=== PATIENT | male | born 1955 | race Caucasian/White ===

== ENCOUNTER 2019-07-28 02:10 | Inpatient (IN) ==
[2019-07-28] MEDS ORDERED: ALBUTEROL NEB INH ONE (02:28)
[2019-07-28] MEDS ORDERED: SOLU-MEDROL IV ONE (02:28)
[2019-07-28] MEDS ORDERED: DUONEB (A & A) INH ONE (02:28)
[2019-07-28] MEDS ORDERED: PULMICORT INH ONE (02:28)
--- NOTE | 2019-07-28 02:38 | PROVIDER DOCUMENTATION ---
HPI-Respiratory General - General Chief Complaint: Shortness of Breath Stated Complaint: SOB Time Seen by Provider: 07/28/19 02:22 Source: patient, family Allergies/Adverse Reactions: Patient Allergies Allergy/AdvReac Type Severity Reaction Status Date / Time codeine AdvReac Unknown RASH Verified 07/28/19 02:31 Home Medications: Home Medication List Medication Instructions Recorded Confirmed Last Taken Type Ondansetron Odt [Zofran Odt] 4 mg SL Q8H PRN PRN #20 tablet 10/16/13 07/28/19 Unknown Rx Alprazolam [Xanax] 0.25 mg PO TID 06/02/19 07/28/19 07/27/19 17:00 History Amlodipine [Norvasc] 10 mg PO DAILY 06/02/19 07/28/19 07/27/19 09:00 History Aspirin 81 mg PO DAILY 06/02/19 07/28/19 07/27/19 09:00 History Eszopiclone [Lunesta] 2 mg PO QHS 06/02/19 07/28/19 07/27/19 21:00 History Methylphenidate HCl [Ritalin] 10 mg PO QAM 06/02/19 07/28/19 07/27/19 09:00 History Cannabidiol (Cbd) Extract 10 mg SUBLINGUAL DAILY 07/28/19 07/28/19 07/27/19 17:00 History [Epidiolex] Clopidogrel Bisulfate [Clopidogrel] 75 mg PO DAILY 07/28/19 07/28/19 07/27/19 09:00 History Dexamethasone 4 mg PO DIRECTED 07/28/19 07/28/19 07/27/19 15:00 History Dronabinol 5 mg PO BID 07/28/19 07/28/19 07/27/19 15:00 History Fentanyl 1 patch TOP Q3D 07/28/19 07/28/19 07/25/19 History Methylphenidate HCl 5 mg PO DIRECTED 07/28/19 07/28/19 07/27/19 15:00 History Oxycodone HCl/Acetaminophen 1 ea PO Q4-6H PRN PRN 07/28/19 07/28/19 Unknown History [Oxycodone-Acetaminophen 10-325] - History of Present Illness-Resp Nature of Presenting Problem: has had cough and congestion for 2-3 days, no fever. Last pm, ~2300, became SOB. Has a central nonradiating CP, nothing makes it better nor worse, but SOB worse with activity. Sl nausea, no vomiting, has had diarrhea, Nothing with extremities. Has hx small cell lung CA, getting chemo, also hx COPD Quality of Pain: reports: dull Review of Systems - Adult - REVIEW OF SYSTEMS - ADULT Constitutional: reports: no symptoms reported Eyes: reports: no symptoms reported Ears, Nose, Mouth & Throat: reports: no symptoms reported Cardiovascular: reports: no symptoms reported Respiratory: reports: see HPI Past History - Adult - PAST MEDICAL HISTORY-ADULT Review of Records: reports: Medications Reviewed Major Childhood Illnesses: reports: denies history Cardiovascular: reports: HTN Respiratory: reports: COPD, cancer Gastrointestinal: reports: denies history Musculoskeletal: reports: denies history Neurological: reports: CVA Psychiatric: reports: denies history Endocrine/Immune: reports: denies history Physical Exam-General - PHYSICAL EXAM-ADULT Initial Vital Signs Reviewed: Yes - CONSTITUTIONAL General Appearance: alert, mild distress - EYES Eyes: PERRL/EOMI, pink conjunctivae - HEAD, EARS, NOSE, MOUTH & THROAT HENMT: normocephalic/atraumatic, moist mucous membranes, normal ENT inspection, pharynx normal - NECK Neck: non-tender, full range of motion, supple - RESPIRATORY Respiratory: respiratory distress (mild-mod), decreased breath sounds ( lloyd on L), accessory muscle use - CARDIOVASCULAR Cardiovascular: tachycardia - GASTROINTESTINAL (ABDOMEN) Abdominal Exam: non tender, soft - MUSCULOSKELETAL Back Exam: normal inspection, no CVA tenderness, no vertebral tenderness Extremity: normal range of motion, non-tender, normal inspection - SKIN Integumentary: normal color, normal turgor, warm/dry - NEUROLOGIC 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: 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 as tested, grossly normal, no motor/sensory deficits - PSYCHIATRIC Psych/Mental Status: normal mood/affect, normal thought content, normal thought process, oriented x 3 - HEART Score HEART Score: History: Slightly Suspicious HEART Score: ECG: Non-Specific Repolarization Disturbance/LBBB/PM HEART Score: Age: 45-65 Years HEART Score: Risk Factors for Atherosclerotic Disease: 1 or 2 Risk Factors Progress - PLAN OF CARE/RESULTS Progress/Plan/Lab Results: Vital Signs - 8 hr 07/28/19 02:12 07/28/19 02:55 Temperature 97.2 F L Pulse Rate 123 H 108 H Respiratory Rate 29 H 26 H Blood Pressure 184/72 O2 Sat by Pulse Oximetry 81 L 97 Laboratory Results - last 24 hr 07/28/19 07/28/19 07/28/19 02:40 02:40 02:40 WBC 27.87 H RBC 3.18 L Hgb 10.3 L Hct 31.8 L MCV 100.0 H MCH 32.4 H MCHC 32.4 L RDW Std Deviation 21.2 H Plt Count 122 L MPV 10.0 Neut % (Auto) Not Reportable Lymph % (Auto) Not Reportable [place] % (Auto) 2.9 Eos % (Auto) 0.0 Baso % (Auto) 0.4 Neut # (Auto) Not Reportable Lymph # (Auto) Not Reportable [place] # (Auto) 0.81 H Eos # (Auto) 0.01 Baso # (Auto) 0.11 D-Dimer, Quantitative Specimen Type ARTERIAL Sample Site R RADIAL pH 7.46 H pCO2 43 pO2 74 HCO3 29.6 H Base Excess 6.1 H Oxyhemoglobin 93.9 L ABG O2 Sat (Calculated) 13.9 L ABG O2 Saturation 97.0 ABG Carboxyhemoglobin 1.90 ABG Methemoglobin 1.3 Kayden Test YES A-a O2 Difference 129.0 Total Hemoglobin 10.5 L Lactate 1.60 Liter Flow 4.0 Blood Gas Modality CANNULA FiO2 % 36.0 Sodium Potassium Chloride Carbon Dioxide Anion Gap BUN Creatinine Estimated GFR/1.73 m2 BUN/Creatinine Ratio Glucose Calculated Osmolality Calcium Total Bilirubin AST ALT Alkaline Phosphatase Troponin T < 0.010 Total Protein Albumin Globulin Albumin/Globulin Ratio Plasma Lactate 07/28/19 07/28/19 07/28/19 02:40 02:40 02:40 WBC RBC Hgb Hct MCV MCH MCHC RDW Std Deviation Plt Count MPV Neut % (Auto) Lymph % (Auto) [place] % (Auto) Eos % (Auto) Baso % (Auto) Neut # (Auto) Lymph # (Auto) [place] # (Auto) Eos # (Auto) Baso # (Auto) D-Dimer, Quantitative 0.79 H Specimen Type Sample Site pH pCO2 pO2 HCO3 Base Excess Oxyhemoglobin ABG O2 Sat (Calculated) ABG O2 Saturation ABG Carboxyhemoglobin ABG Methemoglobin Kayden Test A-a O2 Difference Total Hemoglobin Lactate Liter Flow Blood Gas Modality FiO2 % Sodium 136 Potassium 3.7 Chloride 93 L Carbon Dioxide 30 Anion Gap 13 BUN 16 Creatinine 0.6 L Estimated GFR/1.73 m2 > 60 BUN/Creatinine Ratio 27 Glucose 110 H Calculated Osmolality 274 Calcium 8.7 L Total Bilirubin 0.38 AST 18 ALT 35 Alkaline Phosphatase 151 H Troponin T Total Protein 6.5 Albumin 4.0 Globulin 2.5 Albumin/Globulin Ratio 1.6 Plasma Lactate 1.8 Orders Category Date Time Status Nursing- Obtain EKG ONCE Care 07/28/19 02:36 Active CHEST-PORTABLE [RAD] Stat Exams 07/28/19 02:[address] ANGIOGRM PULMONARY ARTERIES [CT] Stat Exams 07/28/19 03:32 Taken ABG [RESP] Routine Lab 07/28/19 02:40 Completed BLOOD CULTURE [BLDCUL] Stat Lab 07/28/19 04:51 Uncollected CBC WITH DIFF [HEME] Stat Lab 07/28/19 02:40 Completed COMPREHENSIVE METABOLIC PANEL [CHEM] Stat Lab 07/28/19 02:40 Completed D-DIMER [COAG] Stat Lab 07/28/19 02:40 Completed LACTATE, PLASMA [CHEM] Stat Lab 07/28/19 02:40 Completed TROPONIN T Stat Lab 07/28/19 02:40 Completed Albuterol 2.5MG/Ipratrop 0.5MG [Duoneb (A & A)] Med 07/28/19 02:28 Discont inued 3 ml INH NOW ONE Albuterol [Albuterol Neb] Med 07/28/19 02:28 Discontinued 5 mg INH NOW ONE Budesonide [Pulmicort] Med 07/28/19 02:28 Discontinued 0.5 mg INH NOW ONE Maxipime 2 gm/Ns IV Now Med 07/28/19 04:51 Ordered CefEPIME [Maxipime] 2 gm 0.9% Sodium Chloride Inj [Ns] 100 ml IV NOW Methylprednisolone Sod Succ [Solu-Medrol] Med 07/28/19 02:28 Discontinued 125 mg IV NOW ONE Pharmacy Order [Vancomycin IV Per Pharmacy] Med 07/28/19 05:00 Ordered 1 each MISC DIRECTED Aerosol Treatments Routine Oth 07/28/19 02:29 Completed Aerosol Treatments Stat Oth 07/28/19 02:29 Completed Pulse Oximetry Stat Oth 07/28/19 04:51 Ordered EKG [EKG] Stat Ther 07/28/19 02:36 Draft Result Diagrams: 07/28/19 02:40 07/28/19 02:40 - EKG 1 Time of EKG reading by physician:: 02:20 EKG Read and Signed by:: Case Bermudez EKG Interpretation (*Must complete 3 of following elements*): Abnormal Rate: 111 Rhythm: sinus tach [place]: normal ST Wave: non-specific ST changes - XRAY 1 XRAY Study: Chest Impression: Abnormal (mass L upper lobe) - CT/MRI 1 CT Study: Angiogram Impression: Abnormal (no PE, has JENNIFER mass with chest wal invasion, bilat pneumonia) Departure - Departure Date of Disposition Decision: 07/28/19 Time of Disposition Decision: 02:49 DIAGNOSIS: COPD with exacerbation, Small cell lung cancer in adult, Hypoxemia, Healthcare associated bacterial pneumonia Disposition: ADMITTED INPATIENT 09 Certified Medical Emergency: Emergent Condition: Stable Referrals and Follow-Ups: Stanley Peña MD [Primary Care Provider] - - Critical Care Note This patient required my direct & personal management of CC.: No Attestation - Physician/ ROMINA Attestation Patient care was provided by Advanced Practice Provider:: No The physician spent face to face time with patient:: Yes Advanced Practice Provider documentation review:: Supervising physician onsite and consulted in the evaluation and care of this patient. The physician did have a face to face encounter with the patient.
[2019-07-28 03:01] LABS: ALLEN TEST YES; BE 6.1 mmoll (-3.0-3.0); BLOOD TYPE ARTERIAL; HCO3-(ACT) 29.6 mmoll (20.0-26.0); METHB 1.3 % (0.0-1.5); O2(CT) 13.9 mL/dL (15.0-23.0); O2HB 93.9 % (95.0-99.0); PCO2(98.6) 43 mmHg (35-45); PO2(98.6) 74 mmHg (60-100); SAMPLE BLOOD; THB 10.5 g/dL (11.5-17.4); pH(98.6) 7.46 (7.35-7.45)
[2019-07-28 03:02] LABS: MODALITY CANNULA
[2019-07-28 03:18] LABS: BASO# 0.11 X1000 (0.0-0.2); BASO% 0.4 % (0.0-0.8); EOS# 0.01 X1000 (0.0-0.7); HEMATOCRIT 31.8 % (42.0-52.0); HEMOGLOBIN 10.3 g/dL (14.0-18.0); MCH 32.4 PG (27-31); MCHC 32.4 g/dL (33-37); MONO# 0.81 X1000 (0.11-0.59); MONO% 2.9 % (1.7-9.3); PLT 122 X1000 (130-400); RBC 3.18 XMIL (4.7-6.1); RDW 21.2 % (11.5-14.5); WBC 27.87 X1000 (4.8-10.8)
[2019-07-28 03:31] LABS: AGAP 13; ALB/GLOB RATIO 1.6; ALKALINE PHOSPHATASE 151 U/L (32-122); BUN 16 mg/dL (8-22); CALCIUM 8.7 mg/dL (8.8-10.2); CHLORIDE 93 mmol/L (98-107); COSMO 274; CREATININE 0.6 mg/dL (0.7-1.2); ESTIMATED GFR > 60; GLUCOSE 110 mg/dL (70-104); GOT 18 U/L (10-34); GPT 35 U/L (10-44); POTASSIUM 3.7 mmol/L (3.5-5.1); SODIUM 136 mmol/L (136-145); TCO2 30 mmol/L (25-35); TOTAL BILIRUBIN 0.38 mg/dL (0.20-1.00); TOTAL PROTEIN 6.5 g/dL (6.3-8.3)
--- NOTE | 2019-07-28 04:01 | EKG Report ---
Test Performed on : 07/28/2019 02:20:41 AM Test Reason : CP Blood Pressure : / mmHG Vent. Rate : 111 BPM Atrial Rate : 111 BPM P-R Int : 138 ms QRS Dur : 092 ms QT Int : 336 ms P-R-T Axes : 068 053 078 degrees QTc Int : 456 ms Sinus tachycardia. Possible Left atrial enlargement Nonspecific ST abnormality Abnormal ECG When compared with ECG of 02-JUN-2019 10:50, No significant change was found Unconfirmed Result
[2019-07-28] MEDS ORDERED: MAXIPIME 2 GM in NS 100 ML IV ONE (04:51)
[2019-07-28] MEDS ORDERED: VANCOMYCIN IV PER PHARMACY MISC SCH ×2 (05:00→07:56)
[2019-07-28] MEDS ORDERED: PERCOCET-10 PO ONE (05:28)
[2019-07-28] MEDS ORDERED: VANCOMYCIN 2,050 MG in NS 500 ML IV ONE (06:00)
--- NOTE | 2019-07-28 06:30 | Diag Imaging Result Doc PS360 ---
CHEST-PORTABLE - 07/28/2019 INDICATION: sob COMPARISON: 06/08/2019 FINDINGS: Stable right chest port. Stable left apical pulmonary mass. There is worsening reticulonodular infiltrate in the lung bases bilaterally. Heart size remains top normal. Stable left hemidiaphragm elevation. No large pleural effusion. IMPRESSION: Worsening bibasilar ill-defined infiltrates are nonspecific. Electronically signed by Walter Infante 07/28/2019 6:28 AM
--- NOTE | 2019-07-28 07:48 | Diag Imaging Result Doc PS360 ---
EXAM: CT ANGIOGRM PULMONARY ARTERIES INDICATION: difficulty breathing, elev dimer TECHNIQUE: This exam was performed using automated exposure control, adjustment of mA or kV according to patient size, and/or use of iterative reconstruction technique. Thin section axial images and 3-D MIPS were obtained. COMPARISON: None. FINDINGS: There is a large mass in the left upper lobe near the apex that is also been seen on prior chest radiograph. It is abutting and invading the chest wall and eroding the adjacent ribs. It measures approximately 5.8 x 5.1 cm axially. There are multiple other patchy opacities mainly involving the lower lung zones bilaterally with the appearance of pneumonia. However, in this setting, a component of metastatic disease cannot be excluded. There is a smaller solid nodule at the superior left lower lobe measuring up to 0.9 cm. It is nonspecific. There is significant mediastinal and left hilar lymphadenopathy that is assumed to be malignant. This adenopathy is causing partial effacement of the left main pulmonary artery and there is poor opacification of the branches of the left pulmonary artery leading to the left upper lobe mass. This may either be due to the effacement from the mass or pulmonary emboli. If so, they are probably chronic given the pulmonary artery compression. There is motion artifact at the lung bases, which may obscure small pulmonary emboli. However, no discrete pulmonary embolism is appreciated, otherwise. There is patchy aortic atherosclerotic calcification without evidence of aneurysm or dissection. No pleural fluid collection or pneumothorax is appreciated. Limited views of the upper abdomen are essentially unremarkable. IMPRESSION: 1.Large left apical mass with associated invasion of the left chest wall and mediastinal and left hilar lymphadenopathy that is highly suspicious for neoplasm. This was also seen on prior chest radiograph. 2.Bilateral patchy pneumonia mainly at the lung bases. A component of metastatic disease cannot completely be excluded. 3.Effacement of the left pulmonary artery by the lymphadenopathy with poor opacification of the branches of the left pulmonary artery leading to the left upper lobe mass. Please see above discussion. Electronically signed by Justino Correa 07/28/2019 7:45 AM
[2019-07-28] MEDS ORDERED: ZOFRAN IV PRN (07:56)
--- NOTE | 2019-07-28 08:19 | HISTORY AND PHYSICAL ---
PRIMARY CARE PHYSICIAN: None. CHIEF COMPLAINT: Shortness of breath. HISTORY OF PRESENTING ILLNESS: A 64-year-old male with a history of small-cell lung cancer, on chemotherapy, hypertension, and CVA who presented to the emergency department with a 2 day history of worsening shortness of breath. The patient states that he was having difficulty breathing. He tried his nebulizers but he did have any improvement. He states that he was coughing up some thickish material during this time. The patient was evaluated in the emergency department. He had imaging done which did show bilateral pneumonia. Due to his presenting symptoms, he will require admission for further management. At the time of my examination, the patient denied any headache, fever, chills, chest pain, or hemoptysis but complained of shortness of breath and a productive cough. PAST MEDICAL HISTORY: Includes small cell lung cancer, hypertension, CVA. PAST SURGICAL HISTORY: PowerPort, tonsillectomy. ALLERGIES: Codeine. CURRENT MEDICATIONS: Include Xanax 0.25 mg p.o. t.i.d., Norvasc 10 mg p.o. daily, aspirin 81 mg p.o. daily, Plavix 75 mg p.o. daily, dexamethasone 4 mg as directed, fentanyl 25 mg one patch q.3 days, Reglan 10 mg p.o. q.a.m., Percocet 10 one p.o. q.6 hours. SOCIAL HISTORY: He is a former smoker. Admits to social alcohol use. Denies any illicit drug use. FAMILY HISTORY: No history of coronary artery disease. REVIEW OF SYSTEMS: Fourteen point review of systems is as listed in HPI. Other systems negative. PHYSICAL EXAMINATION: GENERAL: Cooperative, friendly male. He is resting more comfortably now. VITAL SIGNS: Temperature 97.2 degrees, pulse 122, respirations 29, blood pressure 184/72. HEENT: Atraumatic, normocephalic. Extraocular movements intact. PERRLA. NECK: No masses. CHEST: Scattered wheezes. CARDIOVASCULAR: Regular rate and rhythm. ABDOMEN: Soft. Positive bowel sounds. EXTREMITIES: No edema. NEUROLOGIC: He is awake, alert, oriented x3. : No bladder distention. SKIN: Warm. LABORATORIES AND STUDIES: WBCs 27.87, hemoglobin 10.3, hematocrit 31.8, platelets 122,000. Sodium 136, potassium 3.7, chloride 93, CO2 is 30, BUN is 16, creatinine 0.6, glucose is 110. ASSESSMENT: A 64-year-old male with a history of small-cell lung cancer, hypertension, and cerebrovascular accident who had presented to the emergency department with a several day history of worsening shortness of breath and a productive cough. He was evaluated in the emergency department. He had imaging done which did show bilateral pneumonia. Subsequently, he will require admission for further management. 1. Bilateral pneumonia. 2. Small-cell lung cancer. 3. Hypertension. PLAN: 1. We will admit patient to medical floor with telemetry. 2. We will check blood cultures. Start patient on IV antibiotics. 3. We will continue with Matheus p.r.n. 4. We will consult his oncologist. 5. Monitor blood pressure closely. 6. Put patient on DVT prophylaxis with SCDs and Lovenox. 7. We will continue to follow and reassess, and make further recommendation based on patient's clinical course. cc: Chandra Moeller MD
[2019-07-28] MEDS: LOVENOX SUBQ SCH (10:22)
[2019-07-28] MEDS: ZOSYN 3.375 GM in NS 50 ML IV SCH ×3 (10:22→20:30)
[2019-07-28] MEDS: PLAVIX PO SCH (10:23)
[2019-07-28] MEDS: ASPIRIN PO SCH (10:23)
[2019-07-28] MEDS: XANAX PO SCH ×4 (10:23→17:28)
[2019-07-28] MEDS: RITALIN PO SCH ×2 (10:24→15:54)
[2019-07-28] MEDS: MARINOL PO SCH ×2 (10:25→16:14)
[2019-07-28] MEDS: NORVASC PO SCH (10:25)
[2019-07-28] MEDS: PATIENT'S OWN MED SL SCH (10:26)
[2019-07-28] MEDS: DECADRON PO SCH ×2 (10:26→16:14)
[2019-07-28] MEDS: DUONEB (A & A) INH SCH ×5 (10:44→23:28)
[2019-07-28] MEDS: PERCOCET-10 PO PRN ×2 (10:50→17:59)
[2019-07-28 14:23] LABS: INR 1.11; PROTIME 14.5 Seconds (11.0-16.0)
[2019-07-28] MEDS: DURAGESIC 25 MICROGM/HR PATCH TD SCH (15:52)
--- NOTE | 2019-07-28 17:29 | PROGRESS NOTE ---
DATE: 07/28/2019 BRIEF PROGRESS NOTE/SUBJECTIVE: The patient still with fairly significant dyspnea, becomes visibly short of breath with conversation, but does state that with breathing treatments and steroids, he has somewhat improved from when he came in. The patient does have decreased breath sounds throughout and faint expiratory wheeze, left greater than right, as well as right basilar rales. ASSESSMENT AND PLAN: Patient with chronic obstructive pulmonary disease exacerbation and pneumonia. I will continue antibiotics, DuoNeb, and steroids for that. Unclear at this point how much of his dyspnea is related to COPD and pneumonia, and how much is due to his known lung cancer, which appears to be at least partially obstructing blood flow to the left pulmonary artery. If the patient's symptoms do not significantly resolve with treatment of COPD exacerbation and pneumonia, then may need transfer to another facility for further evaluation of this mass and its effect on his pulmonary circulation.
[2019-07-28] MEDS: VANCOMYCIN 1,600 MG in NS 250 ML IV SCH (17:59)
[2019-07-28] MEDS: AMBIEN PO SCH (23:29)
[2019-07-29] MEDS ORDERED: MELATONIN PO ONE (00:16)
[2019-07-29] MEDS: PERCOCET-10 PO PRN ×5 (00:29→23:48)
[2019-07-29] MEDS: DUONEB (A & A) INH SCH ×6 (03:02→23:22)
[2019-07-29] MEDS: ZOSYN 3.375 GM in NS 50 ML IV SCH ×4 (03:27→20:27)
[2019-07-29] MEDS: VANCOMYCIN 1,600 MG in NS 250 ML IV SCH ×2 (05:31→17:36)
[2019-07-29 07:12] LABS: BASO# 0.03 X1000 (0.0-0.2); BASO% 0.2 % (0.0-0.8); EOS# 0.02 X1000 (0.0-0.7); EOS% 0.1 % (0.0-10.0); HEMATOCRIT 30.2 % (42.0-52.0); HEMOGLOBIN 9.4 g/dL (14.0-18.0); IMM GRAN# 1.24 X1000 (0.0-0.04); IMM GRAN% 6.9 % (0.0-0.5); LYMPH# 0.49 X1000 (1.2-3.4); LYMPH% 2.7 % (20.5-51.1); MCH 31.6 PG (27-31); MCHC 31.1 g/dL (33-37); MCV 101.7 FL (81-99); MONO# 0.75 X1000 (0.11-0.59); MONO% 4.2 % (1.7-9.3); NEUT# 15.41 X1000 (1.4-6.5); NEUT% 85.9 % (42.2-75.2); PLT 105 X1000 (130-400); RBC 2.97 XMIL (4.7-6.1); RDW 22.4 % (11.5-14.5); WBC 17.94 X1000 (4.8-10.8)
[2019-07-29 07:27] LABS: AGAP 12; BUN 17 mg/dL (8-22); CALCIUM 8.6 mg/dL (8.8-10.2); CHLORIDE 97 mmol/L (98-107); COSMO 277; CREATININE 0.6 mg/dL (0.7-1.2); ESTIMATED GFR > 60; GLUCOSE 98 mg/dL (70-104); POTASSIUM 3.9 mmol/L (3.5-5.1); SODIUM 138 mmol/L (136-145); TCO2 29 mmol/L (25-35)
[2019-07-29 07:44] LABS: ANISOCYTOSIS 2+; BANDS 6 % (0-1); LYMPHS 5 % (21-51); MONO 6 % (1-9); POLYCHROM OCCASIONAL; SEGS 82 % (42-75)
[2019-07-29 07:45] LABS: POIKILOCYTOSIS 1+; TARGET CELLS 1+
[2019-07-29] MEDS: NORVASC PO SCH (08:17)
[2019-07-29] MEDS: XANAX PO SCH ×3 (08:17→18:46)
[2019-07-29] MEDS: ASPIRIN PO SCH (08:17)
[2019-07-29] MEDS: PLAVIX PO SCH (08:17)
[2019-07-29] MEDS: RITALIN PO SCH ×2 (08:18→15:20)
[2019-07-29] MEDS: LOVENOX SUBQ SCH (08:18)
[2019-07-29] MEDS: DECADRON PO SCH ×2 (08:26→15:21)
[2019-07-29] MEDS: MARINOL PO SCH ×2 (08:27→15:20)
[2019-07-29] MEDS: PATIENT'S OWN MED SL SCH (12:19)
--- NOTE | 2019-07-29 15:50 | PROGRESS NOTE ---
DATE: 07/29/2019 INTERVAL HISTORY: The patient is still requiring a fair amount of oxygen, but subjectively his dyspnea is much improved. Continues to have hoarseness and apparent dyspnea with conversation. The patient states this is longstanding and due to a paralyzed vocal cord. No new complaints. No acute events overnight. REVIEW OF SYSTEMS: Twelve point review of systems negative except as per interval history. LABS: WBC 17.9, hemoglobin 9.4, hematocrit 30.2, platelets 105,000. Basic metabolic panel unremarkable. VITAL SIGNS: Temperature 98.3 degrees, pulse 96, respirations 22, blood pressure 124/64, O2 saturation 98% on 6 L by nasal cannula. PHYSICAL EXAMINATION: General: No acute distress. Chronically ill-appearing. HEENT: Normocephalic, atraumatic. Moist mucous membranes. Cardiovascular: Regular rate and rhythm. Pulmonary: No further wheezing. Still some right lower lobe crackles and mildly decreased air entry throughout. Abdomen: Soft, nontender, nondistended. Bowel sounds positive. Extremities: Peripheral pulses intact. No clubbing or cyanosis. Neurologic: Cranial nerves grossly intact aside from above-mentioned hoarseness. No focal deficits identified. Psychiatric: Normal mood and affect. Awake, alert, oriented x3. Skin: No new rashes or lesions identified. ASSESSMENT AND PLAN: 1. Acute hypoxic respiratory failure. Multifactorial with pneumonia, COPD exacerbation, lung cancer, and pulmonary artery compression. COPD appears markedly improved with wheezing essentially resolved and improved air entry. The patient's symptoms also significantly improved but still requiring a fair amount of oxygen. Continue antibiotics and nebulizers. Would begin weaning steroids but patient already on significant dose of Decadron from Oncology. Continue antibiotics with vancomycin and Zosyn for now but if the patient continues to improve, then in another day or two may be able to consider transitioning to p.o. antibiotics. As patient is symptomatically improving fairly rapidly, as long as his oxygen requirements also improve, then may be able to defer doing anything about this mass compressing his left pulmonary artery. 2. Small-cell lung cancer. Followed by Dr. Peña, known, on treatment. 3. Hypertension. Good control on current regimen. Monitor. 4. Paralyzed vocal cord. Chronic issue. Stable. 5. Chronic pain. Reasonably controlled on current fentanyl and Percocet. Monitor.
[2019-07-29] MEDS: AMBIEN PO SCH (23:47)
[2019-07-30] MEDS: ZOSYN 3.375 GM in NS 50 ML IV SCH ×4 (02:10→21:11)
[2019-07-30] MEDS: DUONEB (A & A) INH SCH ×6 (03:27→23:03)
[2019-07-30] MEDS: VANCOMYCIN 1,600 MG in NS 250 ML IV SCH ×2 (06:31→18:15)
[2019-07-30] MEDS: DECADRON PO SCH ×2 (06:32→15:38)
[2019-07-30] MEDS: PERCOCET-10 PO PRN ×4 (06:32→22:22)
[2019-07-30] MEDS: MARINOL PO SCH ×2 (06:33→15:37)
[2019-07-30 07:34] LABS: BASO# 0.02 X1000 (0.0-0.2); BASO% 0.1 % (0.0-0.8); EOS# 0.01 X1000 (0.0-0.7); HEMATOCRIT 29.8 % (42.0-52.0); HEMOGLOBIN 9.4 g/dL (14.0-18.0); IMM GRAN# 1.26 X1000 (0.0-0.04); IMM GRAN% 5.8 % (0.0-0.5); LYMPH# 0.59 X1000 (1.2-3.4); LYMPH% 2.7 % (20.5-51.1); MCH 32.5 PG (27-31); MCHC 31.5 g/dL (33-37); MCV 103.1 FL (81-99); MONO# 0.71 X1000 (0.11-0.59); MONO% 3.3 % (1.7-9.3); MPV 10.3 FL (7.4-10.4); NEUT# 18.95 X1000 (1.4-6.5); NEUT% 88.1 % (42.2-75.2); PLT 128 X1000 (130-400); RBC 2.89 XMIL (4.7-6.1); RDW 22.5 % (11.5-14.5); WBC 21.54 X1000 (4.8-10.8)
[2019-07-30 07:54] LABS: BANDS 22 % (0-1); LYMPHS 1 % (21-51); MONO 1 % (1-9); SEGS 71 % (42-75)
[2019-07-30 07:55] LABS: ANISOCYTOSIS 1+
[2019-07-30 08:02] LABS: AGAP 10; BUN 13 mg/dL (8-22); CALCIUM 8.7 mg/dL (8.8-10.2); CHLORIDE 94 mmol/L (98-107); COSMO 269; CREATININE 0.6 mg/dL (0.7-1.2); ESTIMATED GFR > 60; GLUCOSE 84 mg/dL (70-104); POTASSIUM 3.9 mmol/L (3.5-5.1); SODIUM 135 mmol/L (136-145); TCO2 31 mmol/L (25-35)
--- NOTE | 2019-07-30 08:29 | Diag Imaging Result Doc PS360 ---
EXAM: CHEST-PORTABLE HISTORY: hypoxia, pneumonia, lung cancer TECHNIQUE: Chest single view COMPARISON: 07/28/2019 FINDINGS: No change in the left upper lobe pleural-based mass. Removal of the lateral left third rib. No change in the position of the right jugular line. No pneumothorax. No cardiomegaly. The left hemidiaphragm is elevated. Mild vascular distention. No pleural effusions identified. IMPRESSION: Worsening pulmonary edema Electronically signed by Jordy Wylie 07/30/2019 8:26 AM
[2019-07-30] MEDS: XANAX PO SCH ×3 (09:34→18:16)
[2019-07-30] MEDS: NORVASC PO SCH (09:34)
[2019-07-30] MEDS: RITALIN PO SCH ×2 (09:34→15:38)
[2019-07-30] MEDS: LOVENOX SUBQ SCH (09:34)
[2019-07-30] MEDS: ASPIRIN PO SCH (09:39)
[2019-07-30] MEDS: PLAVIX PO SCH (09:39)
[2019-07-30] MEDS: PATIENT'S OWN MED SL SCH (09:40)
--- NOTE | 2019-07-30 12:40 | PROGRESS NOTE ---
DATE: 07/30/2019 INTERVAL HISTORY: The patient's dyspnea continues to improve. Oxygenation also improving. Remains afebrile. No acute events overnight. No new complaints. REVIEW OF SYSTEMS: Twelve point review of systems negative except as per interval history. LABORATORY DATA: WBC 21.5, hemoglobin 9.4, hematocrit 29.8, platelets 128,000. Sodium 135, potassium 3.9, BUN 13, creatinine 0.6, calcium 8.7. OBJECTIVE: Vital Signs: T-max 98.3 degrees, pulse 98, respirations 20, blood pressure 144/61, O2 saturation 97% on 2 L by nasal cannula. PHYSICAL EXAMINATION: General: No acute distress. Chronically ill-appearing. HEENT: Normocephalic, atraumatic. Moist mucous membranes. No cervical adenopathy. Cardiovascular: Regular rate and rhythm. No murmurs noted. Pulmonary: Still with moderately decreased air entry throughout but otherwise clear to auscultation. No further wheezing or rales. Abdomen: Soft, nontender, nondistended. Bowel sounds positive. Extremities: Peripheral pulses intact. No clubbing or cyanosis. Neurologic: Cranial nerves grossly intact. No focal deficits, hoarseness, stable. Psychiatric: Normal mood and affect. Awake, alert, oriented x3. Skin: No new rashes or lesions identified. ASSESSMENT AND PLAN: 1. Acute hypoxemic respiratory failure. Pneumonia, chronic obstructive pulmonary disease exacerbation, lung cancer, pulmonary artery compression. Chronic obstructive pulmonary disease exacerbation essentially resolved. No further wheezing. Still with significantly decreased air entry but that is likely baseline. Symptoms are also markedly improved. Still requiring a little bit of oxygen but we seem to have a fair bit of room to wean down. May be able to get him off oxygen entirely within the next 24 hours. Continue antibiotics and nebulizer treatments for now. If he continues to improve, can be weaned off oxygen then may be able to consider transitioning to p.o. antibiotics and discharging tomorrow. Given fairly rapid symptomatic improvement and resolving hypoxia, it seems unlikely that the mass compressing his left pulmonary artery is contributing significantly to his current symptoms. 2. Small cell lung cancer. Follow up with Dr. Peña, on treatment. 3. Hypertension. Good control on current regimen. Monitor. 4. Paralyzed vocal cord. Chronic issue and is stable. 5. Chronic pain, reasonably controlled. Patient is on fentanyl and Percocet.
--- NOTE | 2019-07-30 14:44 | HEMO/ONC CONSULTATION ---
DATE: 07/28/2019 ADMITTING PHYSICIAN: Dr. Chandra Moeller. REQUESTING PHYSICIANS: Dr. Chandra Moeller. We appreciate this consult. CHIEF COMPLAINT: Non-small cell lung cancer. HISTORY OF PRESENT ILLNESS: Mr. Nieves is a very pleasant, 64-year-old male well known to Dr. Peña with a history of non-small cell lung cancer. The patient is currently on Gemzar and Navelbine. The patient's next dose of chemotherapy is due August 04. The patient presented to [facility] secondary to a 2-day history of worsening shortness of breath. The patient reports that he had tried nebulizers at home, but did not have any improvement. He was coughing up thick sputum. In the emergency department, the patient underwent chest x-ray, which revealed bilateral pneumonia. He was admitted for treatment. We are consulted as he is well known to us with a history of non-small cell lung cancer. PAST MEDICAL HISTORY: 1. Non-small cell lung cancer. 2. Hypertension. 3. CVA. PAST SURGICAL HISTORY: 1. Power port placement. 2. Tonsillectomy. SOCIAL HISTORY: The patient has a history of smoking cigarettes. He has quit. He drinks alcohol socially and does not use illicit drugs. FAMILY HISTORY: Negative for any hematologic or oncologic disease. MEDICATIONS ON ADMISSION: 1. Xanax. 2. Norvasc. 3. Aspirin. 4. Plavix. 5. Dexamethasone. 6. Fentanyl. 7. Reglan. 8. Percocet. ALLERGIES: Codeine. REVIEW OF SYSTEMS: A 14-point review of systems was obtained and is negative except for mentioned in HPI. PHYSICAL EXAM: Mr. Nieves is a pleasant, thin 64-year-old male lying supine in bed in no immediate distress.Vital Signs: Temperature 97.6, blood pressure 137/67, heart rate 107, respirations 15, O2 saturation 100% on 2 L nasal cannula O2. HEENT: Normocephalic, atraumatic. Mucous membranes are slightly pale and moist. Sclerae is anicteric. Extraocular movements intact. Neck: Supple. Lungs: With coarse breath sounds and wheezes on the right. CV: S1-S2 is heard. No murmurs, rubs or gallops. Abdomen: Nondistended. Extremities: No clubbing, cyanosis, or edema. Dermatologic: No rashes bruises or lesions. Neurologic: The patient is awake, alert, and oriented x3. He has no focal deficits and gait is normal. LABORATORY DATA: Hemoglobin 10.3, hematocrit 31.8. White blood cell count 27.87, platelets 122,000. Sodium 136, potassium 3.7, chloride 93, CO2 is 30, BUN 16, creatinine 0.6, and glucose is 110. Calcium 8.7. Alkaline phosphatase is 151. ASSESSMENT AND PLAN: 1. Stage IIIB non-small cell lung cancer. Currently on Gemzar and Navelbine. The patient's next dose is due 08/04/2019. We will hold further treatment until the patient's acute illness has improved. 2. Bilateral pneumonia. Currently on Zosyn. 3. Hypertension. Stable at this time. 4. We will follow along with you and make further recommendations pending outcomes. The above reflects the history, exam, assessment and plan of Dr. Peña. Dictated by NIMA Cedeno for Stanley Peña MD cc: NIMA Cedeno MD
[2019-07-30] MEDS: AMBIEN PO SCH (21:10)
[2019-07-31] MEDS: ZOSYN 3.375 GM in NS 50 ML IV SCH ×2 (02:37→09:02)
[2019-07-31] MEDS: PERCOCET-10 PO PRN ×2 (02:42→09:00)
[2019-07-31] MEDS: DUONEB (A & A) INH SCH ×2 (03:10→07:35)
[2019-07-31] MEDS: VANCOMYCIN 1,600 MG in NS 250 ML IV SCH (06:16)
[2019-07-31] MEDS: MARINOL PO SCH (06:16)
[2019-07-31] MEDS: DECADRON PO SCH (06:17)
[2019-07-31 06:22] LABS: BASO# 0.03 X1000 (0.0-0.2); BASO% 0.1 % (0.0-0.8); EOS# 0.01 X1000 (0.0-0.7); HEMOGLOBIN 9.7 g/dL (14.0-18.0); IMM GRAN# 1.09 X1000 (0.0-0.04); IMM GRAN% 5.2 % (0.0-0.5); LYMPH# 0.43 X1000 (1.2-3.4); LYMPH% 2.1 % (20.5-51.1); MCH 32.7 PG (27-31); MCHC 31.3 g/dL (33-37); MCV 104.4 FL (81-99); MONO# 0.44 X1000 (0.11-0.59); MONO% 2.1 % (1.7-9.3); MPV 10.3 FL (7.4-10.4); NEUT# 18.97 X1000 (1.4-6.5); NEUT% 90.5 % (42.2-75.2); PLT 148 X1000 (130-400); RBC 2.97 XMIL (4.7-6.1); RDW 22.9 % (11.5-14.5); WBC 20.97 X1000 (4.8-10.8)
[2019-07-31 06:38] LABS: AGAP 11; BUN 12 mg/dL (8-22); CALCIUM 8.8 mg/dL (8.8-10.2); CHLORIDE 97 mmol/L (98-107); COSMO 274; CREATININE 0.6 mg/dL (0.7-1.2); ESTIMATED GFR > 60; GLUCOSE 107 mg/dL (70-104); POTASSIUM 4.2 mmol/L (3.5-5.1); SODIUM 137 mmol/L (136-145); TCO2 29 mmol/L (25-35)
[2019-07-31 06:46] LABS: ANISOCYTOSIS 2+; BANDS 8 % (0-1); LYMPHS 2 % (21-51); SEGS 86 % (42-75)
[2019-07-31 06:47] LABS: HYPOCHROM 1+
[2019-07-31 08:16] VITALS: BP 145/65
[2019-07-31] MEDS: PLAVIX PO SCH (09:00)
[2019-07-31] MEDS: ASPIRIN PO SCH (09:00)
[2019-07-31] MEDS: LOVENOX SUBQ SCH (09:00)
[2019-07-31] MEDS: RITALIN PO SCH (09:00)
[2019-07-31] MEDS: DURAGESIC 25 MICROGM/HR PATCH TD SCH (09:00)
[2019-07-31] MEDS: NORVASC PO SCH (09:01)
[2019-07-31] MEDS: PATIENT'S OWN MED SL SCH (09:01)
[2019-07-31] MEDS: XANAX PO SCH ×2 (09:01→10:54)
--- NOTE | 2019-07-31 14:46 | DISCHARGE SUMMARY ---
ADMISSION DATE: 07/28/2019 DISCHARGE DATE: 07/31/2019 CONSULTATION: Oncology, Dr. Peña PERTINENT STUDIES: 1. Initial chest x-ray worse with worsening bibasilar ill-defined infiltrates. 2. Pulmonary arteriogram with large left apical mass with invasion in the left chest wall mediastinum and left hilar lymphadenopathy. 3. Patchy bilateral pneumonia, primarily at the bases and effacement of the left pulmonary artery by the lymphadenopathy and masses admission. 4. Admission WBC 27.8. Discharge WBC 20.9. DISCHARGE DIAGNOSES: 1. Acute hypoxemic respiratory failure. 2. Pneumonia. 3. Chronic obstructive pulmonary disease exacerbation. 4. Lung cancer. 5. Pulmonary artery compression. 6. Small cell lung cancer. 7. Hypertension. 8. Paralyzed vocal cord. 9. Chronic pain HOSPITAL COURSE: The patient presented with history of known lung cancer, currently on chemotherapy, presented with 2-day history of worsening shortness of breath. He was found to have hypoxia and initial studies showed pneumonia as well as his cancer compressing the left pulmonary artery. He was also found to have fairly significant wheezing, so thought he also had COPD exacerbation. He was placed on antibiotics with Zosyn as well as DuoNeb's. He is continued on his home steroid which oncology has him on. There was concern that given compression of pulmonary artery patient's symptoms might not improve if that was the primary source of his symptoms, but this turned out to not be the case. Patient improved rapidly with breathing treatments and antibiotics. He was able to come off of oxygen entirely. On the day of discharge he was saturating well on room air with resolved symptoms. Patient continues to be hoarse because of a paralyzed vocal cord, which is chronic but was having no dyspnea at the time of discharge. Given patient's rapid improvement he was transitioned to p.o. Levaquin and discharged home to follow up with his PCP and Oncology. The decision whether or not to intervene further with this compressed left pulmonary artery was left to Oncology. DISCHARGE VITAL SIGNS: Temperature 98.7 degrees, pulse 96, respirations 20, blood pressure 145/65, O2 saturation 96% on room air. DISCHARGE MEDICATIONS: 1. Lunesta 2 mg p.o. at bedtime as needed. 2. Aspirin 81 mg p.o. daily. 3. Plavix 75 mg p.o. daily. 4. Dexamethasone 4 mg in the morning and 2 mg in the evening. 5. Dronabinol 5 mg p.o. b.i.d. 6. Fentanyl patch 25 mcg every 3rd day. 7. Methylphenidate 5 mg daily. 8. Norvasc 10 mg p.o. daily. 9. Oxycodone as previously prescribed. 10. Xanax as previously prescribed. Levaquin 750 mg p.o. daily for another 7 days. 11. Albuterol inhaler q.4-6 hours as needed. 12. Zofran tablets 4 mg q.8 hours as needed. FOLLOWUP AND PLAN: The patient discharging home on a further course of oral antibiotics to follow up with PCP and Oncology. TIME SPENT: Next greater than 30 minutes spent arranging discharge and counseling patient.
== END 2019-07-31 11:07 | disposition home or self-care (01) | DRG 193 ==
LOC: ED 02:10 → 3N 07:33 → SUATTDRO 07:33
PROVIDERS: ATTEND Internal Medicine

== ENCOUNTER 2019-08-26 10:31 | Inpatient (IN) ==
--- NOTE | 2019-08-26 11:03 | EKG Report ---
Test Performed on : 08/26/2019 10:41:09 AM Test Reason : SOB Blood Pressure : / mmHG Vent. Rate : 116 BPM Atrial Rate : 116 BPM P-R Int : 136 ms QRS Dur : 084 ms QT Int : 316 ms P-R-T Axes : 076 046 081 degrees QTc Int : 439 ms Sinus tachycardia. Possible Left atrial enlargement Nonspecific ST and T wave abnormality Abnormal ECG When compared with ECG of 28-JUL-2019 02:20, (Unconfirmed) No significant change was found Unconfirmed Result
[2019-08-26 11:10] LABS: BASO# 0.08 X1000 (0.0-0.2); BASO% 0.3 % (0.0-0.8); EOS# 0.02 X1000 (0.0-0.7); EOS% 0.1 % (0.0-10.0); HEMATOCRIT 32.1 % (42.0-52.0); HEMOGLOBIN 10.2 g/dL (14.0-18.0); IMM GRAN# 3.35 X1000 (0.0-0.04); IMM GRAN% 11.7 % (0.0-0.5); LYMPH% 2.1 % (20.5-51.1); MCH 33.6 PG (27-31); MCHC 31.8 g/dL (33-37); MCV 105.6 FL (81-99); MONO# 0.62 X1000 (0.11-0.59); MONO% 2.2 % (1.7-9.3); MPV 9.4 FL (7.4-10.4); NEUT# 24.02 X1000 (1.4-6.5); NEUT% 83.6 % (42.2-75.2); PLT 139 X1000 (130-400); RBC 3.04 XMIL (4.7-6.1); RDW 23.2 % (11.5-14.5); WBC 28.69 X1000 (4.8-10.8)
[2019-08-26 11:15] LABS: PROTIME 13.3 Seconds (11.0-16.0)
[2019-08-26 11:16] LABS: PTT 29.2 Seconds (22.3-41.8)
[2019-08-26 11:30] LABS: AGAP 14; ALB/GLOB RATIO 2.2; ALBUMIN 4.3 g/dL (3.5-5.0); ALKALINE PHOSPHATASE 162 U/L (32-122); BUN 19 mg/dL (8-22); CALCIUM 8.8 mg/dL (8.8-10.2); CHLORIDE 92 mmol/L (98-107); CK PROFILE 15 U/L (24-204); COSMO 265; CREATININE 0.7 mg/dL (0.7-1.2); ESTIMATED GFR > 60; GLUCOSE 104 mg/dL (70-104); GOT 19 U/L (10-34); GPT 19 U/L (10-44); POTASSIUM 4.1 mmol/L (3.5-5.1); SODIUM 131 mmol/L (136-145); TCO2 25 mmol/L (25-35); TOTAL PROTEIN 6.3 g/dL (6.3-8.3)
--- NOTE | 2019-08-26 11:48 | Diag Imaging Result Doc PS360 ---
EXAM: CHEST-2 VIEWS 08/26/2019 HISTORY: SOB TECHNIQUE: PA and lateral chest COMMENT: There is elevation of the left hemidiaphragm. There is a well-circumscribed rounded pleural-based mass in the left apex which was also present on 07/30/2019. This is associated with some apparent bony destruction and/or resection of the second and third ribs. The interstitial opacities previously demonstrated in the lung bases have improved. IMPRESSION: Improved pulmonary edema. Otherwise stable since 07/30/2019. Electronically signed by Barrera Murillo 08/26/2019 11:45 AM
[2019-08-26] MEDS ORDERED: DUONEB (A & A) INH ONE (11:59)
[2019-08-26 12:23] LABS: URINE SOURCE CATH
[2019-08-26 12:26] LABS: BILIRUBIN URINE NEGATIVE (NEGATIVE); BLOOD URINE NEGATIVE (NEGATIVE); COLOR YELLOW; GLUCOSE URINE NEGATIVE (NEGATIVE); KETONE URINE NEGATIVE (NEGATIVE); LEUKOCYTES URINE NEGATIVE (NEGATIVE); NITRITE URINE NEGATIVE (NEGATIVE); PROTEIN URINE NEGATIVE (NEGATIVE); SP GRAVITY URINE 1.015; TURBIDITY URINE CLEAR (CLEAR); UR EPITHELIAL CELLS <10 /HPF (<10); URINE BACTERIA NEGATIVE /HPF; URINE RBC <10 /HPF (<10); URINE WBC <10 /HPF (<10); UROBILINOGEN URINE 4 mg/dL (NORMAL)
--- NOTE | 2019-08-26 12:49 | Diag Imaging Result Doc PS360 ---
EXAM: CT THORAX W/O CONTRAST 08/26/2019 HISTORY: STAGE 4 LUNG CA W/ HX OF POSTOBSTRUCTIVE PNA TECHNIQUE: This exam was performed using automated exposure control, adjustment of mA or kV according to patient size, and/or use of iterative reconstruction technique. COMMENT: There is a pleural-based mass in the left upper lobe which measures almost 4.7 cm in AP dimension. On the previous examination of 07/28/2019, this measured 4.6 cm. There is some increase in interstitial markings in both upper lobes and the superior segment of the left lower lobe. There are patchy ill-defined opacities in the left lower lobe. This is less focal in the more lateral portion of the left lower lobe as seen on image 70 of the previous study. There is also been improvement with respect to the opacities in the right middle lobe. Considering the lack of intravenous contrast on the current study the appearance of the mediastinum and areli has not changed significantly. There is a left pleural effusion which was not previously present. Note is made of gallstones in the gallbladder. The regional skeleton is stable in appearance. IMPRESSION: Improved patchy bronchopneumonia bilaterally. Otherwise essentially stable since 07/28/2019. Electronically signed by Barrera Murillo 08/26/2019 12:46 PM
[2019-08-26] MEDS ORDERED: MAXIPIME 2 GM in NS 100 ML IV ONE (13:37)
--- NOTE | 2019-08-26 13:39 | PROVIDER DOCUMENTATION ---
This chart was entered by Jacquie Miller Scribe, acting as scribe for Marlon Avendaño MD. HPI-Respiratory General - General Chief Complaint: Shortness of Breath Stated Complaint: FEVER CONGESTION CHILLS Time Seen by Provider: 08/26/19 10:48 Source: patient, family Allergies/Adverse Reactions: Patient Allergies Allergy/AdvReac Type Severity Reaction Status Date / Time codeine AdvReac Unknown RASH Verified 08/26/19 10:38 Home Medications: Home Medication List Medication Instructions Recorded Confirmed Last Taken Type Ondansetron Odt [Zofran Odt] 4 mg SL Q8H PRN PRN #20 tablet 10/16/13 08/26/19 Unknown Rx Alprazolam [Xanax] 0.25 mg PO TID 06/02/19 08/26/19 07/27/19 17:00 History Amlodipine [Norvasc] 10 mg PO DAILY 06/02/19 08/26/19 07/27/19 09:00 History Aspirin 81 mg PO DAILY 06/02/19 08/26/19 07/27/19 09:00 History Eszopiclone [Lunesta] 2 mg PO QHS 06/02/19 08/26/19 07/27/19 21:00 History Methylphenidate HCl [Ritalin] 10 mg PO QAM 06/02/19 08/26/19 07/27/19 09:00 History Cannabidiol (Cbd) Extract 10 mg SUBLINGUAL DAILY 07/28/19 08/26/19 07/27/19 17:00 History [Epidiolex] Clopidogrel Bisulfate [Clopidogrel] 75 mg PO DAILY 07/28/19 08/26/19 07/27/19 09:00 History Dexamethasone 4 mg PO DIRECTED 07/28/19 08/26/19 07/27/19 15:00 History Dronabinol 5 mg PO BID 07/28/19 08/26/19 07/27/19 15:00 History Fentanyl 1 patch TOP Q3D 07/28/19 08/26/19 07/25/19 History Methylphenidate HCl 5 mg PO DIRECTED 07/28/19 08/26/19 07/27/19 15:00 History Oxycodone HCl/Acetaminophen 1 ea PO Q4-6H PRN PRN 07/28/19 08/26/19 Unknown History [Oxycodone-Acetaminophen 10-325] Albuterol Sulfate [Proair Hfa] 8.5 gm INHALATION Q4-6H PRN PRN #1 07/31/19 08/26/19 Unknown Rx hfa.aer.[email or web address] Levofloxacin [Levaquin] 750 mg PO DAILY #7 tab 07/31/19 08/26/19 Unknown Rx - History of Present Illness-Resp Nature of Presenting Problem: 64 yowm presents to the ed with c/o sob acute onset this am. pt is stage 4 lung cancer and is currently on chemo. pt has fatigue, dry cough and chills with onset of sob. pt has recently had PNA and was treated Quality of Pain: reports: none Severity in ED: reports: moderate Onset/Duration: reports: this morning Timing: reports: still present, getting worse Context: reports: recent chemotherapy Cough Quality/Degree: reports: mild, dry cough Episode Frequency: frequent episodes Current Respiratory Medication Therapy: Initiated see nurses note Modifying Factors: improves with: oxygen, sitting upright. worse with: exertion, coughing Associated Symptoms: reports: cough, fever/chills (denies fever reports chills), shortness of breath. denies: chest pain/soreness, wheezing Similar Symptoms Previously?: Yes Recently seen or treated by another doctor?: Yes (oncology) Review of Systems - Adult - REVIEW OF SYSTEMS - ADULT Constitutional: reports: see HPI, chills, fatique. denies: fever Eyes: reports: no symptoms reported Ears, Nose, Mouth & Throat: reports: no symptoms reported Cardiovascular: denies: chest pain, palpitations Respiratory: reports: see HPI, cough, dyspnea on exertion, shortness of breath. denies: wheezing Gastrointestinal: denies: diarrhea, nausea, vomiting Genitourinary: reports: no symptoms reported Musculoskeletal: denies: back pain, neck pain Integumentary: reports: no symptoms reported Neurological: reports: no symptoms reported Psychiatric: reports: no symptoms reported Endocrine: reports: no symptoms reported Hematologic/Lymphatic: reports: see HPI, easy bruising Allergic/Immunologic: reports: no symptoms reported All Other Systems: Reviewed and Negative Past History - Adult - PAST MEDICAL HISTORY-ADULT Review of Records: reports: Old Records Reviewed, Nursing Assessment Review, Medications Reviewed, Social history reviewed & non-contributory. Major Childhood Illnesses: reports: denies history Cardiovascular: reports: HTN Respiratory: reports: COPD, cancer, pneumonia Gastrointestinal: reports: denies history Genitourinary: reports: denies history Musculoskeletal: reports: denies history Hand Dominance: Right Handed Neurological: reports: CVA Psychiatric: reports: denies history Endocrine/Immune: reports: denies history Other Conditions: reports: denies history - PRIOR SURGERIES/PROCEDURES Surgical/Procedure History: reports: tonsillectomy - IMMUNIZATION STATUS Childhood Immunizations: See Nurse Assessment Flu Vaccine: See Nurse Assessment - SOCIAL HISTORY Smoking: quit less than 1 year Substance Use: denies Living Situation: family Physical Exam-General - PHYSICAL EXAM-ADULT Initial Vital Signs Reviewed: Yes - CONSTITUTIONAL General Appearance: appears well, alert, mild distress, thin - EYES Eyes: PERRL/EOMI, pink conjunctivae - HEAD, EARS, NOSE, MOUTH & THROAT HENMT: moist mucous membranes, dental decay - NECK Neck: non-tender, full range of motion, supple, normal inspection - RESPIRATORY Respiratory: chest non-tender, respiratory distress, rhonchi - CARDIOVASCULAR Cardiovascular: normal peripheral pulses, tachycardia (121) - CHEST (BREASTS) Chest/Breast: deferred - GASTROINTESTINAL (ABDOMEN) Abdominal Exam: normal bowel sounds, non tender, soft - GENITOURINARY Male Genitalia: deferred Rectal Exam: deferred Hemoccult Exam: deferred - LYMPHATIC Lymphatic: no adenopathy - MUSCULOSKELETAL Back Exam: normal inspection Extremity: normal range of motion, normal inspection - SKIN Integumentary: normal color, normal turgor, warm/dry - NEUROLOGIC Neurologic: grossly normal - PSYCHIATRIC Psych/Mental Status: normal mood/affect, normal thought content, normal thought process, oriented x 3 Progress - PLAN OF CARE/RESULTS Progress/Plan/Lab Results: Vital Signs - 8 hr 08/26/19 10:32 08/26/19 10:47 08/26/19 10:48 Temperature 99.2 F Pulse Rate 121 H 115 H 111 H Respiratory Rate 20 26 H 22 Blood Pressure 142/69 141/85 O2 Sat by Pulse Oximetry 88 L 87 L 95 08/26/19 11:09 08/26/19 11:15 08/26/19 11:29 Temperature Pulse Rate 107 H 102 H Respiratory Rate 21 22 Blood Pressure 156/91 O2 Sat by Pulse Oximetry 97 97 97 08/26/19 11:31 08/26/19 11:45 08/26/19 11:59 Temperature Pulse Rate 99 H 102 H 91 H Respiratory Rate 20 25 H 21 Blood Pressure 158/85 O2 Sat by Pulse Oximetry 97 97 100 08/26/19 12:00 08/26/19 12:15 08/26/19 12:47 Temperature Pulse Rate 90 93 H 89 Respiratory Rate 19 20 20 Blood Pressure O2 Sat by Pulse Oximetry 99 96 97 Laboratory Results - last 24 hr 08/26/19 08/26/19 08/26/19 10:57 10:57 10:57 WBC 28.69 H RBC 3.04 L Hgb 10.2 L Hct 32.1 L MCV 105.6 H MCH 33.6 H MCHC 31.8 L RDW Std Deviation 23.2 H Plt Count 139 MPV 9.4 Immature Gran % (Auto) 11.7 H Neut % (Auto) 83.6 H Lymph % (Auto) 2.1 L [place] % (Auto) 2.2 Eos % (Auto) 0.1 Baso % (Auto) 0.3 Immature Gran # (Auto) 3.35 H Neut # (Auto) 24.02 H Lymph # (Auto) 0.60 L [place] # (Auto) 0.62 H Eos # (Auto) 0.02 Baso # (Auto) 0.08 PT INR PTT (Actin FS) Sodium 131 L Potassium 4.1 Chloride 92 L Carbon Dioxide 25 Anion Gap 14 BUN 19 Creatinine 0.7 Estimated GFR/1.73 m2 > 60 BUN/Creatinine Ratio 27 Glucose 104 Calculated Osmolality 265 Calcium 8.8 Total Bilirubin 0.50 AST 19 ALT 19 Alkaline Phosphatase 162 H Creatine Kinase 15 L Troponin T Sbw-[id number] Pept 443 H Total Protein 6.3 Albumin 4.3 Globulin 2.0 Albumin/Globulin Ratio 2.2 Plasma Lactate Urine Source Urine Color Urine Turbidity Urine pH Ur Specific [place] Urine Protein Ur Glucose (Stick) Ur Ketones (Stick) Urine Blood Urine Nitrite Urine Bilirubin Urobilinogen Dipstick Urine Leukocytes Urine WBC (Auto) Urine RBC (Auto) U Epithel Cells (Auto) Urine Bacteria (Auto) 08/26/19 08/26/19 08/26/19 10:57 10:57 10:57 WBC RBC Hgb Hct MCV MCH MCHC RDW Std Deviation Plt Count MPV Immature Gran % (Auto) Neut % (Auto) Lymph % (Auto) [place] % (Auto) Eos % (Auto) Baso % (Auto) Immature Gran # (Auto) Neut # (Auto) Lymph # (Auto) [place] # (Auto) Eos # (Auto) Baso # (Auto) PT 13.3 INR 1.00 PTT (Actin FS) 29.2 Sodium Potassium Chloride Carbon Dioxide Anion Gap BUN Creatinine Estimated GFR/1.73 m2 BUN/Creatinine Ratio Glucose Calculated Osmolality Calcium Total Bilirubin AST ALT Alkaline Phosphatase Creatine Kinase Troponin T < 0.010 Vnb-R-Rpxcazfdogw Pept Total Protein Albumin Globulin Albumin/Globulin Ratio Plasma Lactate 2.1 Urine Source Urine Color Urine Turbidity Urine pH Ur Specific [place] Urine Protein Ur Glucose (Stick) Ur Ketones (Stick) Urine Blood Urine Nitrite Urine Bilirubin Urobilinogen Dipstick Urine Leukocytes Urine WBC (Auto) Urine RBC (Auto) U Epithel Cells (Auto) Urine Bacteria (Auto) 08/26/19 12:20 WBC RBC Hgb Hct MCV MCH MCHC RDW Std Deviation Plt Count MPV Immature Gran % (Auto) Neut % (Auto) Lymph % (Auto) [place] % (Auto) Eos % (Auto) Baso % (Auto) Immature Gran # (Auto) Neut # (Auto) Lymph # (Auto) [place] # (Auto) Eos # (Auto) Baso # (Auto) PT INR PTT (Actin FS) Sodium Potassium Chloride Carbon Dioxide Anion Gap BUN Creatinine Estimated GFR/1.73 m2 BUN/Creatinine Ratio Glucose Calculated Osmolality Calcium Total Bilirubin AST ALT Alkaline Phosphatase Creatine Kinase Troponin T Pyx-C-Fjyrorfjrxs Pept Total Protein Albumin Globulin Albumin/Globulin Ratio Plasma Lactate Urine Source CATH Urine Color YELLOW Urine Turbidity CLEAR Urine pH 7.0 Ur Specific [place] 1.015 Urine Protein NEGATIVE Ur Glucose (Stick) NEGATIVE Ur Ketones (Stick) NEGATIVE Urine Blood NEGATIVE Urine Nitrite NEGATIVE Urine Bilirubin NEGATIVE Urobilinogen Dipstick 4 A Urine Leukocytes NEGATIVE Urine WBC (Auto) <10 Urine RBC (Auto) <10 U Epithel Cells (Auto) <10 Urine Bacteria (Auto) NEGATIVE Orders Category Date Time Status Cardiac Monitoring DIRECTED Care 08/26/19 10:39 Active IV Insertion ORDERED Care 08/26/19 11:14 Completed Notify MD of + Sepsis Screen NOW Care 08/26/19 11:14 Active Notify Physician As Ordered Care 08/26/19 11:14 Active Oxygen Therapy- ED Nursing DIRECTED Care 08/26/19 10:39 Active Saline Loc NOW Care 08/26/19 10:39 Active CHEST-2 VIEWS [RAD] Stat Exams 08/26/19 10:39 Completed Chest [CT THORAX W/O CONTRAST] [CT] Stat Exams 08/26/19 12:00 Completed BLOOD CULTURE [BLDCUL] Stat Lab 08/26/19 11:24 Results CBC WITH ELECTRONIC DIFF [HEME] Stat Lab 08/26/19 10:57 Completed CK PROFILE [SP CHEM] Stat Lab 08/26/19 10:57 Completed COMPREHENSIVE METABOLIC PANEL [CHEM] Stat Lab 08/26/19 10:57 Completed LACTATE, PLASMA [CHEM] Q3H Lab 08/26/19 10:57 Completed LACTATE, PLASMA [CHEM] Q3H Lab 08/26/19 14:15 Uncollected LACTATE, PLASMA [CHEM] Q3H Lab 08/26/19 17:15 Uncollected PRO B-NATRIURETIC PEPTIDE Stat Lab 08/26/19 10:57 Completed PROTIME WITH INR [COAG] Stat Lab 08/26/19 10:57 Completed PTT [COAG] Stat Lab 08/26/19 10:57 Completed TROPONIN T Stat Lab 08/26/19 10:57 Completed URINALYSIS W/POSS RFLX CULT [URINALYSIS] Stat Lab 08/26/19 12:20 Completed Albuterol 2.5MG/Ipratrop 0.5MG [Duoneb (A & A)] Med 08/26/19 11:59 Di scontinued 3 ml INH NOW ONE Maxipime 2 gm/Ns IV Now Med 08/26/19 13:37 Ordered CefEPIME [Maxipime] 2 gm 0.9% Sodium Chloride Inj [Ns] 100 ml IV NOW Pharmacy Order [Vancomycin IV Per Pharmacy] Med 08/26/19 13:45 Ordered 1 each MISC DIRECTED Aerosol Treatments Routine Oth 08/26/19 11:59 Completed Aerosol Treatments Stat Oth 08/26/19 11:59 Completed CP/SOB/Palp >45 yrs of Age Stat Oth 08/26/19 10:39 Ordered EKG [EKG] Stat Ther 08/26/19 10:39 Draft Result Diagrams: 08/26/19 10:57 08/26/19 10:57 - REASSESSMENT Reassessment #1 Time Reassessed: 11:51 Status: unchanged Reassessment #2 Time Reassessed: 13:38 Status: other (I HAVE SPOKEN TO THE HOSPITALIST TEAM AND WILL ADMIT AND START ANTIBIOTICS.) - EKG 1 Time of EKG reading by physician:: 10:41 EKG Read and Signed by:: Marlon Avendaño EKG Interpretation (*Must complete 3 of following elements*): Abnormal Rate: 116 Rhythm: sinus tachycardia [place]: normal QRS: other (possible left atrial enlargement) [place] Interval: normal Comments: nonspecific ST and T wave abnormality - XRAY 1 XRAY: Bilateral XRAY Study: Chest Impression: See EMR Report (EXAM: CHEST-2 VIEWS 08/26/2019 HISTORY: SOB TECHNIQUE: PA and lateral chest COMMENT: There is elevation of the left hem idiaphragm. There is a well-circumscribed rounded pleural-based mass in the left apex which was also present on 07/30/2019. This is associated with some apparent bony destruction and/or resection of the second and third ribs. The interstitial opacities previously demonstrated in the lung bases have improved. IMPRESSION: Improved pulmonary edema. Otherwise stable since 07/30/2019. Electronically signed by Barrera Murillo 08/26/2019 11:45 AM 08/26/19 1145 Interpreting Physician: Barrera Murillo MD Dictated Date/Time: 08/26/19 1144 cc: Meri Hudson MD; Stanley Peña MD) Departure - Departure Date of Disposition Decision: 08/26/19 Time of Disposition Decision: 13:38 DIAGNOSIS: Elevated WBC count Disposition: ADMITTED INPATIENT 09 Certified Medical Emergency: Emergent Condition: Serious Referrals and Follow-Ups: Stanley Peña MD [Primary Care Provider] - - Critical Care Note This patient required my direct & personal management of CC.: No Attestation - Physician/ ROMINA Attestation Patient care was provided by Advanced Practice Provider:: No The physician spent face to face time with patient:: Yes Advanced Practice Provider documentation review:: Supervising physician onsite and consulted in the evaluation and care of this patient. The physician did have a face to face encounter with the patient. This chart was documented by the indicated scribe, (Jacquie Miller Scribe) and accurately reflects the services I performed and decisions made by me, Marlon Avendaño MD, as attested by the provider's signature.
[2019-08-26] MEDS ORDERED: VANCOMYCIN IV PER PHARMACY MISC SCH (13:45)
[2019-08-26] MEDS ORDERED: VANCOMYCIN 2,200 MG in NS 500 ML IV ONE (16:00)
[2019-08-26] MEDS: DUONEB (A & A) INH SCH ×3 (16:31→23:15)
[2019-08-26] MEDS: NS 1,000 ML IV SCH (16:37)
[2019-08-26] MEDS: SOLU-MEDROL IV SCH ×2 (16:37→22:18)
[2019-08-26] MEDS: PERCOCET-10 PO PRN ×2 (17:46→22:17)
[2019-08-26] MEDS: XANAX PO SCH (17:46)
[2019-08-26] MEDS: PULMICORT INH SCH (19:33)
--- NOTE | 2019-08-26 19:41 | HISTORY AND PHYSICAL ---
PRIMARY CARE PROVIDER: Used to be Dr. Jeff Maldonado; now only uses Dr. Stanley Peña. ONCOLOGIST: Dr. Peña. CHIEF COMPLAINT: Shortness of breath. HISTORY OF PRESENT ILLNESS: Mr. Edward Nieves is a 64-year-old male with a medical history of lung cancer that had spread to the surrounding lymph nodes 2 years ago. He has been getting chemo every other week followed by Dr. Peña. He has vocal cord paralysis secondary to the cancer. Is here with worsening shortness of breath. He had subjective fever and nonproductive cough, and most recently was admitted last month for postobstructive pneumonia, where he went home with Levaquin and steroids. Those have since been completed. The symptoms that he has now have worsened over the last 24 hours. He woke up at 0630 with a significant shortness of breath. His cough is weak. He has had more fatigue, weakness, and some nausea. The imaging actually shows an improvement in his pneumonia, but the white count has elevated quite a bit since his last check, so will admit him for IV antibiotics. PAST MEDICAL HISTORY: 1. Stage IV small-cell lung cancer. 2. The lung cancer spread to the lymph nodes, which those have cleared. 3. COPD. 4. Anxiety, depression. 5. Chronic pain syndrome. 6. Hypertension. 7. CVA with left-sided upper extremity trace residual. 8. 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 SURGICAL HISTORY: 1. PowerPort placement. 2. Tonsillectomy. 3. Cervical lymph node biopsies. No lung biopsy. SOCIAL HISTORY: He was a smoker between the ages of 19 to 62 years old. He was a 8-fwlf-wju-day smoker. He is a social alcohol drinker, anywhere from 1 to 2 beers during a football game. Denies any illicit drug use. He lives with his . He is disabled. FAMILY HISTORY: Brother had hypertension. ALLERGIES: Codeine causes rash. HOME MEDICATIONS: 1. Lunesta 2 mg p.o. nightly. 2. Aspirin 81 mg p.o. daily. 3. Plavix 75 mg p.o. daily. 4. Dronabinol 5 mg p.o. twice daily. 5. CBD extract daily, sublingual. 6. Fentanyl patch 25 mcg topical every 3 days. 7. Ritalin 5 mg p.o. twice daily. 8. Norvasc 10 mg p.o. daily. 9. [place] 10, 1 tablet p.o. every 4 to 6 hours p.r.n. 10. Xanax 0.25 mg p.o. t.i.d. 11. Albuterol 8.5 grams inhaled every 4 to 6 hours p.r.n. 12. Zofran 4 mg sublingual every 8 hours p.r.n. REVIEW OF SYSTEMS: Fourteen-point review of systems is completed, and all were negative except for those mentioned above in the HPI. PHYSICAL EXAMINATION: VITAL SIGNS: Temperature 99.2, heart rate 89, respiratory rate 20, blood pressure 158/85, O2 saturation 97% on 2 L. GENERAL: Mr. Edward Nieves is a 64-year-old male who is in no acute distress. Able to answer questions appropriately. HEENT: Atraumatic, normocephalic. Pupils equal, round, reactive to light. Extraocular movements intact. HEENT: Mucous membranes are dry. NECK: Trachea midline. CARDIOVASCULAR: S1, S2. Regular rate and rhythm. No rubs, gallops, murmurs. No lower extremity edema. +2 dorsalis and radial pulses. Negative JVD or carotid bruits. PULMONARY: Bilateral breath sounds. Bilateral upper lobes with fine rhonchi, and the right upper lobe had some wheezing, decreased in the bases. No accessory muscle use or work of breathing noted. Tolerating 2 L nasal cannula. GI: Soft, nontender, nondistended. Positive bowel sounds x4. EXTREMITIES: Moves all extremities equally with trace weakness in the left hand dental technologist. NEUROLOGIC: A and O x3. Follows commands. Sensory is intact. SKIN: Warm, dry, intact. LABORATORY DATA: White blood cells 28,000, hemoglobin 10, hematocrit 32, platelet count 139. INR is 1.00, PTT is 29.2. Sodium 131, potassium 4.1, BUN 19, creatinine 0.7 glucose 104, calcium 8.4. Bilirubin 0.50, AST 19, ALT 19. CK 15, troponin less than 0.01, proBNP 443. Albumin 4.3. Lactate 2.1. Urinalysis: 4 urobilinogen, otherwise negative. IMAGING: Chest x-ray: Improved pulmonary edema. Chest CT: Improved patchy bronchopneumonia bilaterally, otherwise essentially stable. EKG: Sinus tachycardia, rate 116, QTc of 439. ASSESSMENT AND PLAN: 1. Leukocytosis with continued bronchopneumonia, although it is improving. White count is still up and is causing more shortness of breath. We will do IV steroids, nebulizers and cefepime 1 gram IV every 12 hours. 2. Chronic obstructive pulmonary disease. Arterial blood gases have not been drawn, but the bicarb is normal. It may be some mild exacerbation. He is on 2 L of oxygen. We will continue with nebulizers, steroids, and antibiotic. 3. Stage IV lung cancer. Dr. Peña consulted. He gets chemo every other week. This is his off week. He is supposed to have a PET scan on Friday and wishes to be able to get out of here before Friday. 4. Anxiety, depression. Continue Xanax. 5. Next chronic pain syndrome. Continue fentanyl and Percocet. 6. History of stroke. We will continue Plavix. 7. Hypertension. Continue Norvasc. 8. Vocal cord paralysis secondary to cancer. Question whether there are some problems with swallowing since the vocal cord is paralyzed. Could do a swallow evaluation. 9. Deep venous thrombosis prophylaxis: Sequential compression devices. Dictated by NIMA Ellington for Marshal Bates MD Addendum: Patient seen and examined by myself. Agree with NIMA note. It reflects my assessment and plan. Patient is being admitted to hospital for worsening SOB. Imaging revealed bronchopneumonia is getting better. Will start broad spectrum antibiotics, Duoneb and will monitor patient closely. cc: NIMA Ellington MD [facility]
[2019-08-26] MEDS: AMBIEN PO SCH (22:18)
[2019-08-27] MEDS: MAXIPIME 1 GM in NS 50 ML IV SCH ×2 (03:11→20:09)
[2019-08-27] MEDS: DUONEB (A & A) INH SCH ×6 (03:31→23:13)
[2019-08-27] MEDS: PERCOCET-10 PO PRN ×3 (05:54→19:18)
[2019-08-27] MEDS: NS 1,000 ML IV SCH ×2 (05:54→17:09)
[2019-08-27] MEDS: SOLU-MEDROL IV SCH ×3 (06:25→23:15)
[2019-08-27 07:17] LABS: BASO# 0.04 X1000 (0.0-0.2); BASO% 0.1 % (0.0-0.8); HEMATOCRIT 31.9 % (42.0-52.0); IMM GRAN# 2.16 X1000 (0.0-0.04); IMM GRAN% 6.6 % (0.0-0.5); LYMPH# 0.55 X1000 (1.2-3.4); LYMPH% 1.7 % (20.5-51.1); MCH 33.8 PG (27-31); MCHC 31.3 g/dL (33-37); MCV 107.8 FL (81-99); MONO# 0.57 X1000 (0.11-0.59); MONO% 1.7 % (1.7-9.3); NEUT# 29.32 X1000 (1.4-6.5); NEUT% 89.9 % (42.2-75.2); PLT 163 X1000 (130-400); RBC 2.96 XMIL (4.7-6.1); RDW 23.3 % (11.5-14.5); WBC 32.64 X1000 (4.8-10.8)
[2019-08-27] MEDS: PULMICORT INH SCH ×2 (07:32→19:26)
[2019-08-27 07:55] LABS: AGAP 17; ALB/GLOB RATIO 1.6; ALBUMIN 4.1 g/dL (3.5-5.0); ALKALINE PHOSPHATASE 195 U/L (32-122); BUN 22 mg/dL (8-22); CHLORIDE 95 mmol/L (98-107); COSMO 274; CREATININE 0.6 mg/dL (0.7-1.2); ESTIMATED GFR > 60; GLUCOSE 142 mg/dL (70-104); GOT 15 U/L (10-34); GPT 18 U/L (10-44); POTASSIUM 3.8 mmol/L (3.5-5.1); SODIUM 134 mmol/L (136-145); TCO2 22 mmol/L (25-35); TOTAL BILIRUBIN 0.27 mg/dL (0.20-1.00); TOTAL PROTEIN 6.7 g/dL (6.3-8.3)
[2019-08-27 07:56] LABS: ANISOCYTOSIS 1+; BANDS 12 % (0-1); LYMPHS 2 % (21-51); SEGS 80 % (42-75)
[2019-08-27] MEDS: XANAX PO SCH ×4 (08:13→20:09)
[2019-08-27] MEDS: NORVASC PO SCH (08:13)
[2019-08-27] MEDS: ASPIRIN PO SCH (08:13)
[2019-08-27] MEDS: PLAVIX PO SCH (08:13)
[2019-08-27] MEDS: RITALIN PO SCH ×2 (08:13→16:34)
[2019-08-27] MEDS: MARINOL PO SCH ×2 (08:13→16:34)
[2019-08-27] MEDS ORDERED: PATIENT'S OWN MED SL PRN (09:00)
--- NOTE | 2019-08-27 10:49 | Diag Imaging Result Doc PS360 ---
CHEST-2 VIEWS - 08/27/2019 INDICATION: Pneumonia COMPARISON: 08/26/2019 FINDINGS: Stable left hemidiaphragm elevation. There is some slight increase in linear atelectasis or opacity in the left lung base. There is slight worsening pulmonary vascular congestion. There is some pulmonary edema similar to 07/30/2019. IMPRESSION: Worsening pulmonary vascular congestion and pulmonary edema. Electronically signed by Walter Infante 08/27/2019 10:46 AM
[2019-08-27] MEDS: VANCOMYCIN 1,900 MG in NS 500 ML IV SCH (12:48)
--- NOTE | 2019-08-27 13:55 | PROGRESS NOTE ---
DATE: 08/27/2019 SUBJECTIVE: Patient reports feeling fine. He reports shortness of breath is getting better. He is not requiring any oxygen supplementation. Since last night. OBJECTIVE: Vital Signs: Temperature 97.9 degrees, heart rate 99, respiratory rate 18, blood pressure 132/65, O2 saturation 100% on room air. General Examination: This is a chronically ill- appearing and malnourished 64-year-old male, lying in bed, in no acute distress. HEENT: Head is normocephalic, atraumatic. Hoarseness noted. Cardiovascular: S1, S2 heard. No murmurs, gallops, or rubs. Regular rate and rhythm. Respiratory: Decreased breath sounds globally with coarse breath sounds noted in both pulmonary bases. Patient not using any accessory muscles or having work of breathing. Abdomen: Soft. Nontender to palpation. Bowel sounds present. No organomegaly. Extremities: No clubbing, cyanosis, or edema. Peripheral pulses present in both legs. Neurological: The patient alert oriented x3. Moves all extremities. LABORATORY DATA: White cell count 32.64, hemoglobin 10.0, hematocrit 31.9., Platelets 163,000/ normal BMP. ASSESSMENT AND PLAN: 1. Bronchopneumonia. The reason why this patient came to the hospital was because of shortness of breath and bronchopneumonia that was diagnosed approximately a week ago. He he has been on Levaquin on steroids. His white cell count continues to be elevated because we have continued with steroid. Clinically he reports breathing better. We will continue current antibiotic management we will continue to monitor this patient closely. 2. Chronic obstructive pulmonary disease. We will continue with current management. The patient reports breathing is better. We will continue to monitor. 3. Stage IV lung cancer. Dr. Peña from Oncology has been consulted. 4. Anxiety and depression disorder. We will continue with Xanax. 5. Chronic pain syndrome. We will continue with fentanyl and Percocet. 6. Vocal cord paralysis secondary to cancer, aware. We will continue to monitor. DISPOSITION: At this point, even though the white cell count is very high. He is on IV steroids so that is not a good way to evaluate how this patient is doing. Clinically, he reports breathing better and not requiring any oxygen supplementation. So, at this point, we will continue with the same management. If the patient continues to improve, we may let this patient go to the next 24 to 48 hours. cc: Marshal Bates MD MTDD
--- NOTE | 2019-08-27 16:44 | Diag Imaging Result Doc PS360 ---
EXAM: CT ABD/PELVIS W/PO AND IV CON HISTORY: restaging NSCLC TECHNIQUE: CT abdomen and pelvis with intravenous contrast COMPARISON: 05/18/2019 FINDINGS: Development of fibrosis or infiltrates in the lower lungs. Trace left pleural fluid. There are several stones within the gallbladder. The gallbladder is contracted. There is fatty infiltration of the liver. Normal spleen, pancreas, adrenal glands, and kidneys. No hydronephrosis. Prominent atherosclerosis. No aortic aneurysm. Normal appendix. No abscess. There is stool throughout the colon. Fluid-filled loops of small bowel. Urinary bladder is distended and is normal. The prostate is not enlarged. IMPRESSION: 1.Infiltrates or fibrosis have developed in the lower lungs 2.Cholelithiasis 3.Prominent atherosclerosis 4.There is fatty infiltration of the liver 5.Constipation This exam was performed using automated exposure control, adjustment of mA or kV according to patient size, and/or use of iterative reconstruction technique. Electronically signed by Jordy Wylie 08/27/2019 4:42 PM
--- NOTE | 2019-08-27 16:51 | Diag Imaging Result Doc PS360 ---
CT NECK W/WO CONTRAST - 08/27/2019 INDICATION: restaging NSCLC COMPARISON: None FINDINGS: There is a right chest port in good position. There is dense vascular calcification of the aortic arch and the origins of the great vessels. There is ill-defined density in the left supraclavicular fossa. This may represent adenopathy. This measures about 1.8 x 3.3 cm in AP and lateral dimensions. No other suspicious soft tissue findings in the neck. There are moderate degenerative changes of the spine. No acute or suspicious bony lesion. IMPRESSION: Questionable left-sided supraclavicular lymphadenopathy. This exam was performed using automated exposure control, adjustment of mA or kV according to patient size, and/or use of iterative reconstruction technique Electronically signed by Walter Infante 08/27/2019 4:49 PM
[2019-08-27] MEDS: AMBIEN PO SCH (20:09)
[2019-08-27] MEDS: DURAGESIC 25 MICROGM/HR PATCH TD SCH (20:09)
--- NOTE | 2019-08-27 20:14 | HEMO/ONC CONSULTATION ---
DATE: 08/27/2019 ADMITTING PHYSICIAN: Dr. Marshal Bates. We appreciate this consult. CHIEF COMPLAINT: Stage IV non-small cell lung cancer. HISTORY OF PRESENT ILLNESS: Mr. Nieves is a pleasant, 64-year-old, male, well known to Dr. Peña with a history of stage IV non-small cell lung cancer. We have been treating him with Gemzar and Navelbine. He received cycle 3, day 15, on 08/18/2019. In addition to chemotherapy, the patient received Neulasta on 08/18/2019, and the patient has been tolerating treatment well. He is due for restaging CT scans in the near future. The patient reports that several days prior to admission, he had subjective fever and nonproductive cough. He was recently admitted for postobstructive pneumonia, and placed on antibiotics and given steroids. However, the patient reports that his symptoms worsened over the last 24 hours. He states that he has had significant shortness of breath and a weak cough, unable to clear secretions. CT of the chest revealed improved patchy bronchopneumonia bilaterally and the patient was admitted for IV antibiotics. Of note, the patient's white blood cell count is 32,640. However, the patient did receive Neulasta on 08/18/2019, which is likely the source of his leukocytosis. PAST MEDICAL HISTORY: 1. Stage IV non-small cell lung cancer. 2. COPD. 3. Anxiety and depression. 4. Chronic pain syndrome. 5. Hypertension. 6. History of stroke with left-sided upper extremity trace residual weakness. 7. Vocal cord paralysis secondary to lung cancer. PAST SURGICAL HISTORY: 1. Port placement. 2. Tonsillectomy. 3. Cervical lymph node dissection. SOCIAL HISTORY: The patient has a history of smoking one pack of cigarettes daily from the age 19 to 62. He drinks alcohol socially. He does not use illicit drugs. FAMILY HISTORY: Negative for hematologic or oncologic disease. MEDICATIONS ON ADMISSION: 1. Lunesta. 2. Aspirin 81 mg. 3. Plavix. 4. Dronabinol. 5. CBD extract. 6. Fentanyl patch. 7. Ritalin. 8. Norvasc. 9. [place]. 10. Xanax. 11. Albuterol. 12. Zofran. ALLERGIES: Codeine. REVIEW OF SYSTEMS: A 14-point review of systems was obtained and is negative except for mentioned in the HPI. PHYSICAL EXAMINATION: Mr. Nieves is a pleasant, 64-year-old male, lying supine in bed in no immediate distress.HEENT: Normocephalic, atraumatic. Mucous membranes slightly pale and moist. Sclerae anicteric. Extraocular movements intact. Voice is hoarse. Neck: Supple. Lungs: Clear to auscultation bilaterally, except for right upper lobe with decreased breath sounds. Cardiovascular: S1, S2 is heard without murmur, rub, or gallop. Abdomen: Nondistended. Extremities: No clubbing, cyanosis, or edema. Dermatologic: No rashes, bruises, or lesions. Neurologic: The patient is awake, alert, and oriented x3. He has no focal deficit. LABORATORY DATA: Hemoglobin 10.0, hematocrit 31.9, white blood cell count 32.640, platelet count 163,000. Sodium 134, potassium 3.8, chloride 95, CO2 is 22, BUN 22, creatinine 0.6, and glucose is 142. Bilirubin 0.27, alkaline phosphatase 195, AST 15, ALT 18. UA is negative for UTI. IMAGING STUDIES: CT of the chest reveals improved patchy bronchopneumonia bilaterally. ASSESSMENT AND PLAN: 1. Stage IV non-small cell lung cancer, status post Gemzar and Navelbine cycle 3, day 15, on 08/18/2019. The patient was given Neulasta on 08/18/2019. We will hold further treatment until the patient's acute illness improves. 2. Bronchopneumonia with leukocytosis. The patient is currently on antibiotics. Leukocytosis is likely secondary to Neulasta effect. Neulasta was given on 08/18/2019. 3. Chronic obstructive pulmonary disease with no exacerbation at this time. 4. Anxiety and depression. Well controlled on medication. 5. Chronic pain. Would continue current pain regimen. 6. We will follow along with you and make further recommendations pending outcomes. The above reflects the history, exam, assessment, and plan of Dr. Peña. Dictated by NIMA Cedeno for Stanley Peña MD cc: NIMA Cedeno MD
[2019-08-28] MEDS: DUONEB (A & A) INH SCH ×6 (03:31→23:02)
[2019-08-28] MEDS: PERCOCET-10 PO PRN ×4 (04:58→23:54)
[2019-08-28] MEDS: NS 1,000 ML IV SCH ×2 (06:17→20:23)
[2019-08-28] MEDS: SOLU-MEDROL IV SCH (06:17)
[2019-08-28 07:12] LABS: BASO# 0.02 X1000 (0.0-0.2); BASO% 0.1 % (0.0-0.8); EOS# 0.01 X1000 (0.0-0.7); HEMATOCRIT 30.6 % (42.0-52.0); HEMOGLOBIN 9.6 g/dL (14.0-18.0); IMM GRAN# 1.69 X1000 (0.0-0.04); IMM GRAN% 5.4 % (0.0-0.5); LYMPH# 0.45 X1000 (1.2-3.4); LYMPH% 1.4 % (20.5-51.1); MCHC 31.4 g/dL (33-37); MCV 108.5 FL (81-99); MONO# 0.46 X1000 (0.11-0.59); MONO% 1.5 % (1.7-9.3); MPV 9.9 FL (7.4-10.4); NEUT# 28.48 X1000 (1.4-6.5); NEUT% 91.6 % (42.2-75.2); PLT 173 X1000 (130-400); RBC 2.82 XMIL (4.7-6.1); RDW 23.2 % (11.5-14.5); WBC 31.11 X1000 (4.8-10.8)
[2019-08-28 07:37] LABS: AGAP 11; ALB/GLOB RATIO 1.4; ALBUMIN 3.6 g/dL (3.5-5.0); ALKALINE PHOSPHATASE 182 U/L (32-122); BUN 14 mg/dL (8-22); CALCIUM 8.4 mg/dL (8.8-10.2); CHLORIDE 96 mmol/L (98-107); COSMO 268; CREATININE 0.5 mg/dL (0.7-1.2); ESTIMATED GFR > 60; GLUCOSE 120 mg/dL (70-104); GOT 18 U/L (10-34); GPT 17 U/L (10-44); POTASSIUM 4.2 mmol/L (3.5-5.1); SODIUM 133 mmol/L (136-145); TCO2 26 mmol/L (25-35); TOTAL BILIRUBIN 0.23 mg/dL (0.20-1.00); TOTAL PROTEIN 6.2 g/dL (6.3-8.3)
[2019-08-28] MEDS: PULMICORT INH SCH ×2 (07:48→19:26)
[2019-08-28 08:00] LABS: ANISOCYTOSIS 2+; BANDS 22 % (0-1); LYMPHS 2 % (21-51); MONO 4 % (1-9); SEGS 68 % (42-75)
[2019-08-28 08:01] LABS: HYPOCHROM 1+
[2019-08-28] MEDS: VANCOMYCIN 1,900 MG in NS 500 ML IV SCH (09:00)
[2019-08-28] MEDS: ASPIRIN PO SCH (09:01)
[2019-08-28] MEDS: MAXIPIME 1 GM in NS 50 ML IV SCH ×2 (09:01→20:23)
[2019-08-28] MEDS: NORVASC PO SCH (09:02)
[2019-08-28] MEDS: PLAVIX PO SCH (09:02)
[2019-08-28] MEDS: XANAX PO SCH ×3 (09:02→16:43)
[2019-08-28] MEDS: RITALIN PO SCH ×2 (09:08→16:43)
[2019-08-28] MEDS: MARINOL PO SCH ×2 (09:08→16:43)
--- NOTE | 2019-08-28 15:34 | PROGRESS NOTE ---
DATE: 08/28/2019 SUBJECTIVE: The patient reports feeling fine. He is not requiring any oxygen supplementation. He has no shortness of breath anymore. OBJECTIVE: Vital Signs: Temperature 97.9 degrees, heart rate 100, respiratory rate 16, blood pressure 152/73 O2 saturation 100% 2 L nasal cannula. General: This is a chronically ill- appearing and malnourished, 64-year-old, male, lying in bed in no acute distress. HEENT: Head is normocephalic, nontraumatic. Hoarseness noted. Cardiovascular: S1, S2 heard. No murmurs, gallops, or rubs. Regular rate and rhythm. Respiratory: Decreased breath sounds globally with coarse breath sounds noted in both pulmonary bases. Patient is not using any accessory muscles or having work of breathing. Abdomen: Soft, nontender to palpation. Bowel sounds present. No organomegaly. Extremities: No clubbing, cyanosis, or edema. Peripheral pulses present in both legs. Neurological: Patient is alert and oriented x3. Moves 4 extremities. LABORATORY DATA: Reviewed. White cell count is 13.11, hemoglobin 9.6, hematocrit 173. Normal BMP. ASSESSMENT AND PLAN: 1. Bronchopneumonia. The patient continues to be on vancomycin and Zosyn. He has been on IV steroids, in this case methylprednisolone 40 mg IV q.8 hours. I do not think we need to continue with that medication. Will stop that. White cell count unfortunately continues to be high, not only because of the steroids, but because of Neulasta according to Hematology/Oncology. In any case, my plan is to continue to monitoring this patient over the weekend here, and on Friday, if he is feeling better, we may let him go. 2. Chronic obstructive pulmonary disease. He does not look to be in any exacerbation. We will provide breathing treatments as needed. 3. Stage IV lung cancer. Oncology following this patient. 4. Anxiety and depression disorder. We will continue with Xanax. 5. Chronic pain syndrome. We will continue with fentanyl and Percocet. 6. Vocal cord paralysis secondary to cancer. Aware. We will continue to monitor. 7. Disposition. We will keep this patient over the weekend. On Friday, if he is feeling okay, we may discharge him. cc: Marshal Bates MD
[2019-08-28] MEDS: AMBIEN PO SCH (20:24)
--- NOTE | 2019-08-29 00:15 | EKG Report ---
Test Performed on : 08/28/2019 11:39:44 PM Test Reason : sob, cp Blood Pressure : / mmHG Vent. Rate : 125 BPM Atrial Rate : 125 BPM P-R Int : 136 ms QRS Dur : 086 ms QT Int : 296 ms P-R-T Axes : 057 028 058 degrees QTc Int : 427 ms Sinus tachycardia. Possible Left atrial enlargement Borderline ECG When compared with ECG of 26-AUG-2019 10:41, (Unconfirmed) No significant change was found Unconfirmed Result
[2019-08-29] MEDS: VANCOMYCIN 1,900 MG in NS 500 ML IV SCH (01:11)
[2019-08-29] MEDS: DUONEB (A & A) INH SCH ×6 (03:25→22:46)
[2019-08-29] MEDS: PULMICORT INH SCH ×2 (07:34→19:40)
[2019-08-29 07:36] LABS: BASO# 0.07 X1000 (0.0-0.2); BASO% 0.3 % (0.0-0.8); EOS# 0.02 X1000 (0.0-0.7); EOS% 0.1 % (0.0-10.0); HEMATOCRIT 32.1 % (42.0-52.0); HEMOGLOBIN 10.1 g/dL (14.0-18.0); IMM GRAN# 2.63 X1000 (0.0-0.04); IMM GRAN% 10.4 % (0.0-0.5); LYMPH# 0.58 X1000 (1.2-3.4); LYMPH% 2.3 % (20.5-51.1); MCH 33.7 PG (27-31); MCHC 31.5 g/dL (33-37); MONO# 0.33 X1000 (0.11-0.59); MONO% 1.3 % (1.7-9.3); MPV 9.7 FL (7.4-10.4); NEUT# 21.69 X1000 (1.4-6.5); NEUT% 85.6 % (42.2-75.2); PLT 198 X1000 (130-400); RDW 22.3 % (11.5-14.5); WBC 25.32 X1000 (4.8-10.8)
[2019-08-29 07:40] LABS: AGAP 13; ALB/GLOB RATIO 1.5; ALBUMIN 3.5 g/dL (3.5-5.0); ALKALINE PHOSPHATASE 143 U/L (32-122); BUN 18 mg/dL (8-22); CHLORIDE 92 mmol/L (98-107); COSMO 262; CREATININE 0.6 mg/dL (0.7-1.2); ESTIMATED GFR > 60; GLUCOSE 87 mg/dL (70-104); GOT 23 U/L (10-34); GPT 17 U/L (10-44); POTASSIUM 4.2 mmol/L (3.5-5.1); SODIUM 130 mmol/L (136-145); TCO2 25 mmol/L (25-35); TOTAL BILIRUBIN 0.36 mg/dL (0.20-1.00); TOTAL PROTEIN 5.9 g/dL (6.3-8.3)
[2019-08-29 07:59] LABS: BANDS 8 % (0-1); LYMPHS 4 % (21-51); SEGS 86 % (42-75)
[2019-08-29 08:00] LABS: ANISOCYTOSIS 2+; HYPOCHROM 1+
[2019-08-29] MEDS: RITALIN PO SCH ×2 (08:28→16:30)
[2019-08-29] MEDS: TYLENOL PO PRN (08:28)
[2019-08-29] MEDS: NORVASC PO SCH (08:28)
[2019-08-29] MEDS: MARINOL PO SCH ×2 (08:28→16:29)
[2019-08-29] MEDS: PLAVIX PO SCH (08:28)
[2019-08-29] MEDS: NS 1,000 ML IV SCH (08:29)
[2019-08-29] MEDS: XANAX PO SCH ×3 (08:29→17:28)
[2019-08-29] MEDS: MAXIPIME 1 GM in NS 50 ML IV SCH ×2 (08:29→19:49)
[2019-08-29] MEDS: ASPIRIN PO SCH (08:29)
[2019-08-29] MEDS: PERCOCET-10 PO PRN ×2 (08:36→19:50)
[2019-08-29] MEDS: PRINIVIL PO SCH ×3 (08:58→22:49)
[2019-08-29] MEDS: ZOFRAN IV PRN ×2 (09:05→16:30)
--- NOTE | 2019-08-29 09:33 | PROGRESS NOTE ---
DATE: 08/29/2019 SUBJECTIVE: The patient reports feeling a little bit more short of breath. According to nursing staff, he fell this morning. He was feeling also anxious as well. OBJECTIVE: Vital Signs: Temperature 100.1 degrees, heart rate 129, respiratory rate 16, blood pressure 185/84, O2 saturation 100% on room air. General: This is a chronically ill-appearing, malnourished, 64-year-old, male, lying in bed in no acute distress. Cardiovascular: S1, S2 heard. No murmurs, gallops, or rubs. Regular rate and rhythm. Respiratory: Decreased breath sounds globally with coarse breath sounds and wheezing noted in both pulmonary gomez, mostly in both bases. The patient is not using any accessory muscles or having work of breathing. Abdomen: Soft, nontender to palpation. Bowel sounds present. No organomegaly. Extremities: No clubbing, cyanosis, or edema. Peripheral pulses present in both legs. Neurological: The patient is alert and oriented x3. Moves all 4 extremities. LABORATORY DATA: Reviewed. ASSESSMENT AND PLAN: 1. Bronchopneumonia. Will continue with vancomycin and cefepime. Clinically, this patient is not doing well. I think at this point, we will transfer this patient to the PVC unit and will go from there. Intravenous steroid has been stopped. Her white cell count has been very elevated, but it has been improving since yesterday from 35,000 to 25,000. Will continue with the same management. 2. Chronic obstructive pulmonary disease. The patient looks to be in exacerbation today with more wheezing all over both pulmonary bases. Will continue with DuoNeb, and will add Mucomyst to his current treatment. 3. Stage IV lung cancer. Oncology following this patient. 4. Hypertension. Blood pressure is very elevated, so will add lisinopril 10 mg 1 tablet by mouth twice daily to her current treatment. 5. Anxiety and depressive disorder. Will continue with Xanax. The patient requests to have Xanax increased doses, but considering her worsening respiratory failure, we prefer to continue with the same management. 6. Chronic pain syndrome. Will continue with fentanyl and Percocet. 7. Vocal cord paralysis secondary to cancer. Aware. Will continue to monitor. 8. Disposition. The patient is going to be sent to the PVC unit today. Will continue to monitor this patient closely. cc: Marshal Bates MD
[2019-08-29 10:45] LABS: BASO# 0.06 X1000 (0.0-0.2); BASO% 0.2 % (0.0-0.8); EOS# 0.04 X1000 (0.0-0.7); EOS% 0.1 % (0.0-10.0); HEMATOCRIT 30.9 % (42.0-52.0); HEMOGLOBIN 9.7 g/dL (14.0-18.0); IMM GRAN# 2.39 X1000 (0.0-0.04); IMM GRAN% 8.7 % (0.0-0.5); INR 1.06; LYMPH# 0.49 X1000 (1.2-3.4); LYMPH% 1.8 % (20.5-51.1); MCH 33.2 PG (27-31); MCHC 31.4 g/dL (33-37); MCV 105.8 FL (81-99); MONO# 0.39 X1000 (0.11-0.59); MONO% 1.4 % (1.7-9.3); MPV 9.6 FL (7.4-10.4); NEUT% 87.8 % (42.2-75.2); PLT 201 X1000 (130-400); PROTIME 13.9 Seconds (11.0-16.0); RBC 2.92 XMIL (4.7-6.1); RDW 21.7 % (11.5-14.5); WBC 27.37 X1000 (4.8-10.8)
[2019-08-29 10:46] LABS: PTT 32.8 Seconds (22.3-41.8)
[2019-08-29 10:53] LABS: AGAP 12; ALB/GLOB RATIO 1.3; ALBUMIN 3.2 g/dL (3.5-5.0); ALKALINE PHOSPHATASE 121 U/L (32-122); BUN 17 mg/dL (8-22); CHLORIDE 93 mmol/L (98-107); CK PROFILE 22 U/L (24-204); COSMO 263; CREATININE 0.5 mg/dL (0.7-1.2); ESTIMATED GFR > 60; GLUCOSE 84 mg/dL (70-104); GOT 22 U/L (10-34); GPT 15 U/L (10-44); SODIUM 131 mmol/L (136-145); TCO2 26 mmol/L (25-35); TOTAL BILIRUBIN 0.38 mg/dL (0.20-1.00); TOTAL PROTEIN 5.6 g/dL (6.3-8.3)
[2019-08-29] MEDS: MUCOMYST 20% INH SCH ×2 (11:12→19:40)
--- NOTE | 2019-08-29 11:12 | Diag Imaging Result Doc PS360 ---
EXAM: CHEST-1 VIEW HISTORY: R/O sepsis TECHNIQUE: Single view COMPARISON: 08/27/2019 FINDINGS: Interval development of dense bilateral infiltrates. No change in the right-sided portacatheter. No cardiomegaly. No pleural effusions identified. Left upper and lateral pleural based mass with rib destruction again demonstrated. IMPRESSION: Interval development of pneumonia. Electronically signed by Jordy Wylie 08/29/2019 11:10 AM
[2019-08-29 12:24] LABS: ALLEN TEST YES; BE 3.5 mmoll (-3.0-3.0); BLOOD TYPE ARTERIAL; HCO3-(ACT) 27.6 mmoll (20.0-26.0); METHB 0.7 % (0.0-1.5); O2(CT) 14.9 mL/dL (15.0-23.0); O2HB 92.9 % (95.0-99.0); PCO2(98.6) 44 mmHg (35-45); PO2(98.6) 70 mmHg (60-100); SAMPLE BLOOD; SAO2 95.9 % (95.0-100.0); THB 11.4 g/dL (11.5-17.4); pH(98.6) 7.42 (7.35-7.45)
[2019-08-29 12:28] LABS: MODALITY NRB
[2019-08-29] MEDS ORDERED: LASIX IV ONE (12:41)
[2019-08-29 13:02] LABS: CALCIUM 9.3 mg/dL (8.8-10.2)
--- NOTE | 2019-08-29 14:26 | PULMONOLOGY CONSULTATION ---
DATE: 08/29/2019 REQUESTING CLINICIAN: Dr. Sierra. REASON FOR CONSULTATION: Lung cancer. HISTORY OF PRESENT ILLNESS: Mr. Nieves is a 64-year-old white male who was diagnosed with stage IV lung cancer with a biopsy of a lymph node in the left neck in February 2018. The patient has received chemotherapy and radiation therapy. He has had difficulty with recurrent pneumonia. The patient was admitted to the hospital 08/26 with pneumonia which radiographically had improved over CT scan performed in July. He was initiated on antibiotics but has had progressive increased oxygen requirements over the last 3 days. PAST MEDICAL HISTORY: 1. Stage IV non-small cell lung cancer with metastasis into the lymph nodes of the left neck. 2. Status post radiation to the left neck and chest by patient's report. 3. Chronic vocal cord paralysis associated with the lung cancer. 4. Prior stroke. 5. Chronic obstructive pulmonary disease. 6. Anxiety/depressive disorder. 7. Hypertension. 8. Chronic pain syndrome. 9. Status post tonsillectomy. SOCIAL HISTORY: The patient has a 40 pack-year history for tobacco but has been a nonsmoker since his diagnosis by report. Occasional alcohol use. FAMILY HISTORY: Positive for hypertension. REVIEW OF SYSTEMS: Notable for hoarseness, chronic cough, increasing shortness of breath. PHYSICAL EXAMINATION: General: Reveals a frail, chronically ill-appearing male with a BMI of less than 19 on a nonrebreather mask. He has mild work of breathing. Blood pressure 102/56, heart rate 111, respiratory rate 22, oxygen saturation 95%. HEENT: Pupils are equal and reactive. Oropharynx appears clear. Neck: Reveals some thickening of the skin in the supraclavicular fossa. Chest: Reveals diffuse bilateral rhonchi. Cardiac Exam: S1-S2. Abdomen: Soft. Extremities: Reveal no significant edema. LABORATORIES: Chest x-ray today reveals marked increase in bilateral infiltrates compared to 2 days ago. White blood count 27.37, hemoglobin 9.7, platelet count 201,000. Arterial blood gas, pH 7.42, pCO2 of 44, pO2 of 70. Chemistry. Sodium 131, potassium 4.0, chloride 93, bicarb 26, BUN 17, creatinine 0.5. IMPRESSION: A 64-year-old with metastatic lung cancer, status post radiation to the neck, paralyzed vocal cord, history of prior stroke, who now is having recurrent aspiration events and he has: 1. Stage IV lung cancer. 2. Aspiration pneumonia. 3. Vocal cord paralysis. 4. Acute hypoxemic respiratory failure. 5. Chronic obstructive pulmonary disease. 6. Protein calorie malnutrition. RECOMMENDATION: 1. Initiate an NPO status. I will let the patient have occasional ice chips for oral hygiene. 2. Initiate Clinimix and lipids as a nutrition bridge. 3. We will schedule modified barium swallow with improvement in pulmonary status. 4. We will check immunoglobulin levels to see if replacement might benefit this patient. cc: Sajan Zuleta MD
[2019-08-29] MEDS: LIPOSYN 20% 250 ML IV SCH (14:47)
[2019-08-29] MEDS: CLINIMIX E 4.25%-5% SOLUTION 1,000 ML IV SCH (14:47)
[2019-08-29 16:19] LABS: URINE SOURCE CLEAN CATCH
[2019-08-29 16:26] LABS: BILIRUBIN URINE NEGATIVE (NEGATIVE); BLOOD URINE NEGATIVE (NEGATIVE); COLOR YELLOW; GLUCOSE URINE NEGATIVE (NEGATIVE); KETONE URINE NEGATIVE (NEGATIVE); LEUKOCYTES URINE NEGATIVE (NEGATIVE); NITRITE URINE NEGATIVE (NEGATIVE); PROTEIN URINE NEGATIVE (NEGATIVE); SP GRAVITY URINE 1.015; TURBIDITY URINE CLEAR (CLEAR); UROBILINOGEN URINE NORMAL (NORMAL)
[2019-08-29 16:27] LABS: UR EPITHELIAL CELLS <10 /HPF (<10); URINE BACTERIA NEGATIVE /HPF; URINE RBC <10 /HPF (<10); URINE WBC <10 /HPF (<10)
[2019-08-29] MEDS: VANCOMYCIN 1,500 MG in NS 250 ML IV SCH (19:50)
[2019-08-29] MEDS: AMBIEN PO SCH ×2 (19:52→22:49)
[2019-08-30] MEDS ORDERED: LASIX IV ONE (03:12)
[2019-08-30] MEDS: DUONEB (A & A) INH SCH ×6 (03:26→23:03)
[2019-08-30] MEDS: PERCOCET-10 PO PRN (04:11)
[2019-08-30] MEDS: CLINIMIX E 4.25%-5% SOLUTION 1,000 ML IV SCH ×2 (04:11→17:44)
[2019-08-30 05:14] LABS: ALLEN TEST YES; BE 4.6 mmoll (-3.0-3.0); BLOOD TYPE ARTERIAL; HCO3-(ACT) 28.3 mmoll (20.0-26.0); METHB 0.7 % (0.0-1.5); O2(CT) 14.9 mL/dL (15.0-23.0); PCO2(98.6) 46 mmHg (35-45); PO2(98.6) 60 mmHg (60-100); SAMPLE BLOOD; SAO2 92.8 % (95.0-100.0); THB 11.8 g/dL (11.5-17.4); pH(98.6) 7.42 (7.35-7.45)
[2019-08-30 05:16] LABS: MODALITY NRB; O2HB 89.8 % (95.0-99.0)
[2019-08-30 06:27] LABS: BASO# 0.04 X1000 (0.0-0.2); BASO% 0.2 % (0.0-0.8); EOS# 0.11 X1000 (0.0-0.7); EOS% 0.5 % (0.0-10.0); HEMATOCRIT 28.9 % (42.0-52.0); HEMOGLOBIN 9.2 g/dL (14.0-18.0); IMM GRAN# 1.61 X1000 (0.0-0.04); IMM GRAN% 6.6 % (0.0-0.5); LYMPH# 0.25 X1000 (1.2-3.4); MCH 33.5 PG (27-31); MCHC 31.8 g/dL (33-37); MCV 105.1 FL (81-99); MONO# 0.28 X1000 (0.11-0.59); MONO% 1.2 % (1.7-9.3); MPV 9.7 FL (7.4-10.4); NEUT# 21.94 X1000 (1.4-6.5); NEUT% 90.5 % (42.2-75.2); PLT 215 X1000 (130-400); RBC 2.75 XMIL (4.7-6.1); RDW 20.6 % (11.5-14.5); WBC 24.23 X1000 (4.8-10.8)
[2019-08-30 06:42] LABS: MAGNESIUM 1.6 mg/dL (1.5-2.7); PHOSPHORUS 4.8 mg/dL (2.7-4.5)
--- NOTE | 2019-08-30 06:48 | Diag Imaging Result Doc PS360 ---
CHEST-PORTABLE - 08/30/2019 INDICATION: abnormal exam COMPARISON: 08/29/2019 FINDINGS: Stable right chest port. There is increasing density of the extensive infiltrate throughout both lungs. Stable left upper lobe pulmonary mass. Heart size remains top normal. IMPRESSION: Slight worsening in the extensive bilateral infiltrates/pneumonia. Electronically signed by Walter Infante 08/30/2019 6:45 AM
[2019-08-30 06:58] LABS: AGAP 14; ALB/GLOB RATIO 0.9; ALBUMIN 2.6 g/dL (3.5-5.0); ALKALINE PHOSPHATASE 139 U/L (32-122); BUN 30 mg/dL (8-22); CALCIUM 7.8 mg/dL (8.8-10.2); CHLORIDE 89 mmol/L (98-107); COSMO 266; CREATININE 0.7 mg/dL (0.7-1.2); ESTIMATED GFR > 60; GLUCOSE 116 mg/dL (70-104); GOT 22 U/L (10-34); GPT 13 U/L (10-44); POTASSIUM 3.9 mmol/L (3.5-5.1); SODIUM 129 mmol/L (136-145); TCO2 26 mmol/L (25-35); TOTAL BILIRUBIN 0.34 mg/dL (0.20-1.00); TOTAL PROTEIN 5.6 g/dL (6.3-8.3)
[2019-08-30 07:21] LABS: BANDS 2 % (0-1); LYMPHS 3 % (21-51); MONO 1 % (1-9); SEGS 92 % (42-75)
[2019-08-30] MEDS: PULMICORT INH SCH ×2 (07:53→20:22)
[2019-08-30] MEDS: MUCOMYST 20% INH SCH ×2 (07:54→20:22)
[2019-08-30] MEDS: PLAVIX PO SCH (09:53)
[2019-08-30] MEDS: XANAX PO SCH ×3 (09:53→16:29)
[2019-08-30] MEDS: MARINOL PO SCH ×2 (09:53→14:14)
[2019-08-30] MEDS: MAXIPIME 1 GM in NS 50 ML IV SCH ×2 (09:54→19:27)
[2019-08-30] MEDS: VANCOMYCIN 1,500 MG in NS 250 ML IV SCH ×2 (09:54→19:27)
[2019-08-30] MEDS: ASPIRIN PO SCH (09:54)
[2019-08-30] MEDS: PRINIVIL PO SCH ×2 (09:55→20:34)
[2019-08-30] MEDS: NORVASC PO SCH (09:55)
[2019-08-30] MEDS: RITALIN PO SCH ×2 (10:37→14:15)
--- NOTE | 2019-08-30 10:47 | PROGRESS NOTE ---
DATE: 08/30/2019 SUBJECTIVE: The patient is definitely more short of breath. Now looks that he has some mild respiratory distress and using a BiPAP mask. OBJECTIVE: Vital Signs: Temperature 98.4, heart rate 108, respiratory rate 20, blood pressure 111/64, O2 saturation 99% on BiPAP. General Examination: This is a chronically ill-appearing, malnourished 64-year-old male, lying in bed in mild respiratory distress using a BiPAP mask. Cardiovascular exam: S1, S2 heard. No murmurs, gallops, or rubs. Regular rate and rhythm. Respiratory exam: Decreased breath sounds globally with coarse breath sounds noted and wheezing noted in both pulmonary bases, definitely much worse in comparing with yesterday. The patient is using a few accessory muscles. Abdomen: Soft, nontender to palpation. Bowel sounds present. No organomegaly. Extremities exam: No clubbing, cyanosis, or edema. Peripheral pulses present in both legs. Neurological exam: Patient is alert and oriented x3. Moves 4 extremities. LABORATORY DATA: Reviewed. White cell count 24.23, hemoglobin 9.2, hematocrit 28.9, platelets 215. ABG that shows pH 7.42 with pCO2 46, PO2 60. Sodium 129. ASSESSMENT/PLAN: 1. Bronchopneumonia. Patient is on vancomycin and cefepime. Apparently looks like he has aspirated. The patient is in mild respiratory distress today, so he is using BiPAP now. I think he is breathing a little bit worse in comparing with yesterday. I think at this point we will transfer to the intensive care unit for better monitoring. 2. Chronic obstructive pulmonary disease exacerbation. We will continue with DuoNeb every 4 hours plus Mucomyst. Will continue to monitor. 3. Stage IV lung cancer. Oncology is following this patient. 4. Hypertension. Blood pressure is much better controlled. We will continue with the same management. 5. Anxiety/depressive disorder. We will continue with Xanax. 6. Chronic pain syndrome. Patient is going to receive morphine and Percocet has been stopped. 7. Vocal cord paralysis secondary to lung cancer. Aware. DISPOSITION: The patient looks a little bit worse today, so I am planning to send him to the intensive care unit for better monitoring. Pulmonary following this patient for recommendations. cc: Marshal Bates MD
[2019-08-30] MEDS: LIPOSYN 20% 250 ML IV SCH (13:14)
[2019-08-30] MEDS: MORPHINE IV PRN ×2 (17:15→20:35)
[2019-08-30] MEDS: AMBIEN PO SCH (20:34)
[2019-08-30] MEDS: DURAGESIC 25 MICROGM/HR PATCH TD SCH (21:03)
--- NOTE | 2019-08-30 21:51 | PULMONOLOGY PROGRESS NOTE ---
DATE: 08/30/2019 SUBJECTIVE: The patient was transferred to the Intensive Care Unit due to increased work of breathing. He was on non-rebreather but feels slightly more comfortable on a BiPAP device. OBJECTIVE: Maximum temperature in the last 24 hours 100.1 degrees. Blood pressure 115/61, heart rate 109, respiratory rate 24, oxygen saturation 99% on BiPAP.HEENT: Pupils are equal and reactive. Oropharynx appears clear. Neck: Supple. Chest: Reveals diffuse rhonchi bilaterally. Cardiac: Increased rate, regular rhythm. Abdomen: Soft. Extremities: Reveal trace edema. LABORATORIES: Chest x-ray reveals significant worsening of bilateral infiltrates. White blood count 24,000, hemoglobin 9.2, platelet count 215,000. Sodium 129, potassium 3.9, chloride 89, bicarbonate 26, BUN 30, creatinine 0.7. IMPRESSION: A 64-year-old with 1. Stage IV lung cancer. 2. Aspiration pneumonia, now with an acute respiratory distress syndrome-like pattern. 3. Vocal cord paralysis. 4. Acute hypoxemic respiratory failure. 5. Protein calorie malnutrition. 6. Chronic obstructive pulmonary disease. DISCUSSION: A 64-year-old with problems outlined above. He has had some radiographic progression of infiltrates. RECOMMENDATION: 1. Continue NPO status. 2. Continue Clinimix and lipids as nutrition bridge. He may require TPN. 3. Continue oxygen and BiPAP. 4. Continue broad-spectrum antibiotics. 5. Prognosis is guarded. cc: Sajan Zuleta MD
[2019-08-31] MEDS: CLINIMIX E 4.25%-5% SOLUTION 1,000 ML IV SCH ×3 (03:24→21:51)
[2019-08-31] MEDS: TYLENOL PO PRN (03:24)
[2019-08-31] MEDS: MORPHINE IV PRN ×5 (03:48→23:17)
[2019-08-31] MEDS: DUONEB (A & A) INH SCH ×6 (06:03→23:29)
[2019-08-31 06:40] LABS: AGAP 13; ALB/GLOB RATIO 0.8; ALBUMIN 2.3 g/dL (3.5-5.0); ALKALINE PHOSPHATASE 74 U/L (32-122); BUN 28 mg/dL (8-22); CALCIUM 8.3 mg/dL (8.8-10.2); CHLORIDE 91 mmol/L (98-107); COSMO 268; CREATININE 0.5 mg/dL (0.7-1.2); ESTIMATED GFR > 60; GLUCOSE 122 mg/dL (70-104); GOT 22 U/L (10-34); GPT 10 U/L (10-44); POTASSIUM 4.1 mmol/L (3.5-5.1); SODIUM 130 mmol/L (136-145); TCO2 26 mmol/L (25-35); TOTAL BILIRUBIN 0.38 mg/dL (0.20-1.00); TOTAL PROTEIN 5.2 g/dL (6.3-8.3)
[2019-08-31 06:48] LABS: BASO# 0.02 X1000 (0.0-0.2); BASO% 0.1 % (0.0-0.8); EOS# 0.03 X1000 (0.0-0.7); EOS% 0.2 % (0.0-10.0); HEMOGLOBIN 7.9 g/dL (14.0-18.0); IMM GRAN% 3.5 % (0.0-0.5); LYMPH# 0.21 X1000 (1.2-3.4); LYMPH% 1.2 % (20.5-51.1); MCH 33.5 PG (27-31); MCHC 31.6 g/dL (33-37); MCV 105.9 FL (81-99); MONO% 1.8 % (1.7-9.3); MPV 9.6 FL (7.4-10.4); NEUT# 15.76 X1000 (1.4-6.5); NEUT% 93.2 % (42.2-75.2); PLT 205 X1000 (130-400); RBC 2.36 XMIL (4.7-6.1); RDW 19.5 % (11.5-14.5); WBC 16.92 X1000 (4.8-10.8)
[2019-08-31 07:20] LABS: BANDS 5 % (0-1); LYMPHS 1 % (21-51); MONO 1 % (1-9); SEGS 92 % (42-75)
[2019-08-31] MEDS: PULMICORT INH SCH ×2 (07:55→19:47)
[2019-08-31] MEDS: MUCOMYST 20% INH SCH ×2 (07:55→19:46)
[2019-08-31] MEDS: VANCOMYCIN 1,500 MG in NS 250 ML IV SCH ×2 (08:37→20:30)
[2019-08-31] MEDS: MAXIPIME 1 GM in NS 50 ML IV SCH ×2 (08:37→20:30)
[2019-08-31] MEDS: ASPIRIN PO SCH (09:33)
[2019-08-31] MEDS: MARINOL PO SCH (09:33)
[2019-08-31] MEDS: RITALIN PO SCH (09:34)
[2019-08-31] MEDS: PLAVIX PO SCH (09:34)
[2019-08-31] MEDS: NORVASC PO SCH (09:34)
[2019-08-31] MEDS: PRINIVIL PO SCH (09:34)
[2019-08-31] MEDS: XANAX PO SCH (09:35)
[2019-08-31] MEDS ORDERED: LASIX IV ONE ×2 (12:26→22:13)
[2019-08-31] MEDS: LIPOSYN 20% 250 ML IV SCH (13:17)
--- NOTE | 2019-08-31 13:59 | Diag Imaging Result Doc PS360 ---
EXAM: CHEST-1 VIEW 08/31/2019 HISTORY: resp. failure TECHNIQUE: AP portable upright at 1350 COMMENT: There is diffuse alveolar opacity in the right lung and in the parahilar region of the left lung. There is worsened opacification over the left hemidiaphragm obscuring it. This in comparison with 08/30/2019. IMPRESSION: Pulmonary edema and/or pneumonia with worsened atelectasis versus pneumonia left lower lobe. Electronically signed by Barrera Murillo 08/31/2019 1:57 PM
[2019-08-31] MEDS: VASOTEC IV SCH (15:04)
[2019-08-31] MEDS: ATIVAN IV PRN ×2 (19:35→23:17)
--- NOTE | 2019-08-31 23:54 | PULMONOLOGY PROGRESS NOTE ---
DATE: 08/31/2019 SUBJECTIVE: The patient remains short of breath and on BiPAP. OBJECTIVE: Vital Signs: Maximum temperature was earlier this morning at 101.2 degrees, blood pressure 118/72, heart rate 104, respiratory rate 28, oxygen saturation 91%. HEENT: Pupils are equal and reactive. Oropharynx appears clear. Neck: Supple. Chest: Reveals scattered rhonchi and crackles bilaterally. Cardiac: Increased rate. Abdomen: Soft with diminished bowel sounds. Extremities: Reveal trace edema. LABORATORIES: Chest x-ray reveals volume loss on the left with bilateral infiltrates, right greater than left, with slight worsening on the left over the last 24 hours. Sodium 130, potassium 4.1, chloride 91, bicarbonate 26, BUN 28, creatinine 0.5. White blood count 16.92, hemoglobin 7.9, platelet count 205,000. Microbiology reveals no new data. IMPRESSION: A 64-year-old with 1. Stage IV lung cancer. 2. Aspiration pneumonia with acute respiratory distress syndrome. 3. Vocal cord paralysis. 4. Acute hypoxemic respiratory failure. 5. Chronic obstructive pulmonary disease. 6. Protein calorie malnutrition. PLAN: 1. Continue NPO status. We will continue Clinimix and lipids as a nutrition bridge. 2. Continue BiPAP. May try high-flow oxygen. If he fails these modalities, he may require intubation given his acute illness. 3. Continue broad-spectrum antibiotics. 4. Prognosis is guarded. cc: Sajan Zuleta MD
[2019-09-01] MEDS: VASOTEC IV SCH ×2 (01:40→13:13)
[2019-09-01] MEDS: CLINIMIX E 4.25%-5% SOLUTION 1,000 ML IV SCH ×2 (01:40→11:50)
[2019-09-01] MEDS: DUONEB (A & A) INH SCH ×6 (03:16→23:38)
[2019-09-01 04:46] LABS: ALLEN TEST YES; BE 14.1 mmoll (-3.0-3.0); BLOOD TYPE ARTERIAL; HCO3-(ACT) 35.9 mmoll (20.0-26.0); METHB 0.7 % (0.0-1.5); O2(CT) 10.9 mL/dL (15.0-23.0); O2HB 91.3 % (95.0-99.0); PCO2(98.6) 47 mmHg (35-45); PO2(98.6) 64 mmHg (60-100); SAMPLE BLOOD; SAO2 94.7 % (95.0-100.0); THB 8.4 g/dL (11.5-17.4); pH(98.6) 7.52 (7.35-7.45)
[2019-09-01 04:47] LABS: MODALITY BI PAP
[2019-09-01 05:20] LABS: BASO# 0.02 X1000 (0.0-0.2); BASO% 0.2 % (0.0-0.8); EOS# 0.05 X1000 (0.0-0.7); EOS% 0.4 % (0.0-10.0); HEMATOCRIT 25.1 % (42.0-52.0); IMM GRAN# 0.16 X1000 (0.0-0.04); IMM GRAN% 1.4 % (0.0-0.5); LYMPH# 0.31 X1000 (1.2-3.4); LYMPH% 2.7 % (20.5-51.1); MCH 33.2 PG (27-31); MCHC 31.9 g/dL (33-37); MCV 104.1 FL (81-99); MONO# 0.25 X1000 (0.11-0.59); MONO% 2.2 % (1.7-9.3); MPV 9.6 FL (7.4-10.4); NEUT# 10.51 X1000 (1.4-6.5); NEUT% 93.1 % (42.2-75.2); PLT 246 X1000 (130-400); RBC 2.41 XMIL (4.7-6.1); RDW 18.6 % (11.5-14.5)
[2019-09-01 05:27] LABS: ESTIMATED GFR > 60
[2019-09-01 05:30] LABS: ANISOCYTOSIS 1+; BANDS 9 % (0-1); HYPOCHROM 1+; LYMPHS 1 % (21-51); MONO 2 % (1-9); NRBC 1 % (0-0); SEGS 86 % (42-75)
[2019-09-01 05:33] LABS: AGAP 10; ALB/GLOB RATIO 0.8; ALBUMIN 2.6 g/dL (3.5-5.0); ALKALINE PHOSPHATASE 67 U/L (32-122); BUN 25 mg/dL (8-22); CALCIUM 8.6 mg/dL (8.8-10.2); CHLORIDE 84 mmol/L (98-107); COSMO 261; CREATININE 0.5 mg/dL (0.7-1.2); GLUCOSE 120 mg/dL (70-104); GOT 22 U/L (10-34); GPT 11 U/L (10-44); MAGNESIUM 1.6 mg/dL (1.5-2.7); PHOSPHORUS 3.5 mg/dL (2.7-4.5); POTASSIUM 3.6 mmol/L (3.5-5.1); SODIUM 127 mmol/L (136-145); TCO2 33 mmol/L (25-35); TOTAL BILIRUBIN 0.41 mg/dL (0.20-1.00)
--- NOTE | 2019-09-01 07:04 | Diag Imaging Result Doc PS360 ---
CHEST-PORTABLE - 09/01/2019 INDICATION: abnormal exam COMPARISON: 08/31/2019 FINDINGS: Stable right chest port. Stable dense bilateral interstitial infiltrates. Heart size is normal. IMPRESSION: No change from prior. Electronically signed by Walter Infante 09/01/2019 7:01 AM
[2019-09-01] MEDS: MORPHINE IV PRN ×3 (07:54→23:18)
[2019-09-01] MEDS: MUCOMYST 20% INH SCH ×2 (08:08→19:45)
[2019-09-01] MEDS: PULMICORT INH SCH ×2 (08:08→19:45)
[2019-09-01] MEDS: MAXIPIME 1 GM in NS 50 ML IV SCH ×2 (08:13→19:41)
[2019-09-01] MEDS: ATIVAN IV PRN ×2 (12:00→18:02)
[2019-09-01] MEDS: LIPOSYN 20% 250 ML IV SCH (12:04)
--- NOTE | 2019-09-01 14:42 | PROGRESS NOTE ---
DATE: 09/01/2019 SUBJECTIVE: Patient has no major complaints. OBJECTIVE: Blood pressure is 107/67, heart rate of 111, respiratory rate of 30, temp is 100.5 degrees.Cardiovascular: Regular rate and rhythm. Pulmonary: Bilateral breath sounds clear to auscultation. GI: Soft, nontender, nondistended. Bowel sounds are positive. White count 11, hemoglobin and hematocrit 8 and 25, platelets 246,000. PH 7.52, pCO2 47, PaO2 64, sodium 127, BUN and creatinine of 25 and 0.5. PROBLEM LIST: 1. Bronchopneumonia. We will continue vancomycin and cefepime. He is still having a lot of issues with respiratory failure, which I am going to say is the next issue. Acute on chronic respiratory failure. He has a diffuse, almost looks like a reticulonodular kind of pattern both sides, could be pneumonia, but could be carcinomatosis too, but he is struggling a lot to breathe. The family is still struggling with making him do not intubate. He had requested to be intubated, but his prognosis is very poor whether he gets intubated or not, frankly, but we will see. 2. Acute respiratory failure. Again, we will continue positive-pressure ventilation. I think he is at high risk for decompensation. He is back on BiPAP. We are on maximal support and we will follow. 3. Stage IV lung cancer. Dr. Peña is following. Appreciate his input regarding any major issues. In any case, patient is stable. We will continue to follow closely. DISPOSITION: 1. Pending clinical status. 2. Hypertension. He is doing okay. Prognosis guarded. We are in ongoing conversations with the family about his level of care. Family does want to be aggressive if they are able. cc: Hasmukh Green MD
[2019-09-01] MEDS: VANCOMYCIN 1,200 MG in NS 250 ML IV SCH (17:27)
[2019-09-01] MEDS ORDERED: LASIX IV ONE (20:28)
[2019-09-02] MEDS: CLINIMIX E 4.25%-5% SOLUTION 1,000 ML IV SCH ×2 (01:48→13:59)
[2019-09-02] MEDS: VASOTEC IV SCH ×2 (03:12→15:02)
[2019-09-02] MEDS: DUONEB (A & A) INH SCH ×6 (03:39→23:22)
[2019-09-02] MEDS ORDERED: LASIX IV ONE (06:00)
[2019-09-02 06:03] LABS: BASO# 0.01 X1000 (0.0-0.2); BASO% 0.1 % (0.0-0.8); EOS# 0.08 X1000 (0.0-0.7); EOS% 0.8 % (0.0-10.0); HEMATOCRIT 25.3 % (42.0-52.0); HEMOGLOBIN 7.8 g/dL (14.0-18.0); IMM GRAN# 0.16 X1000 (0.0-0.04); IMM GRAN% 1.6 % (0.0-0.5); LYMPH# 0.27 X1000 (1.2-3.4); LYMPH% 2.8 % (20.5-51.1); MCH 32.4 PG (27-31); MCHC 30.8 g/dL (33-37); MONO# 0.31 X1000 (0.11-0.59); MONO% 3.2 % (1.7-9.3); NEUT# 8.89 X1000 (1.4-6.5); NEUT% 91.5 % (42.2-75.2); PLT 276 X1000 (130-400); RBC 2.41 XMIL (4.7-6.1); RDW 18.4 % (11.5-14.5); WBC 9.72 X1000 (4.8-10.8)
[2019-09-02 06:06] LABS: ESTIMATED GFR > 60
[2019-09-02 06:13] LABS: AGAP 14; ALB/GLOB RATIO 0.8; ALBUMIN 2.5 g/dL (3.5-5.0); ALKALINE PHOSPHATASE 63 U/L (32-122); BUN 30 mg/dL (8-22); CALCIUM 8.6 mg/dL (8.8-10.2); CHLORIDE 87 mmol/L (98-107); COSMO 273; CREATININE 0.4 mg/dL (0.7-1.2); GLUCOSE 112 mg/dL (70-104); GOT 22 U/L (10-34); GPT 11 U/L (10-44); POTASSIUM 3.7 mmol/L (3.5-5.1); SODIUM 133 mmol/L (136-145); TCO2 32 mmol/L (25-35); TOTAL BILIRUBIN 0.36 mg/dL (0.20-1.00); TOTAL PROTEIN 5.8 g/dL (6.3-8.3)
[2019-09-02] MEDS: VANCOMYCIN 1,200 MG in NS 250 ML IV SCH ×2 (06:32→17:07)
[2019-09-02] MEDS: MAXIPIME 1 GM in NS 50 ML IV SCH ×2 (07:50→20:24)
--- NOTE | 2019-09-02 07:58 | PULMONOLOGY PROGRESS NOTE ---
DATE: 09/01/2019 SUBJECTIVE: The patient is on BiPAP. He was rate briefly taken off BiPAP and did well briefly but then required reinitiation of BiPAP for hypoxemia. OBJECTIVE: Vital Signs: Maximum temperature in the last 24 hours of 99.9 degrees, blood pressure 116/67, heart rate 106, respiratory rate 23, oxygen saturation 93% on BiPAP. HEENT: Pupils are equal and reactive. Oropharynx appears clear. Neck is supple. Chest reveals faint crackles bilaterally. Cardiac Examination: S1, S2. Increased rate. Abdomen is soft. Extremities: Without edema. Laboratories: Chest x-ray reveals bilateral infiltrates with no change compared to 08/31/2019. White blood count 11.30, hemoglobin 8.0, platelet count 246,000. Sodium 127, potassium 3.6, chloride 84, bicarbonate 33, BUN 25, creatinine 0.5. IMPRESSION: A 64-year-old with: 1. Stage IV lung cancer. 2. Aspiration pneumonia with acute respiratory distress syndrome. 3. Vocal cord paralysis. 4. Acute hypoxemic respiratory failure. 5. Chronic obstructive pulmonary disease. 6. Protein calorie malnutrition. DISCUSSION: A 64-year-old with problems outlined above. His chest x-ray revealed posttreatment changes on presentation but not pneumonia. Current chest x-ray looks significantly different than his admission x-ray, making current illness more likely to be infectious/inflammatory and less likely be due to his underlying malignancy. RECOMMENDATIONS: 1. Continue Clinimix and lipids for nutrition. 2. Maintain NPO status. 3. Continue to cycle BiPAP, nonrebreather, and high-flow oxygen. 4. Continue broad-spectrum antibiotics. 5. Prognosis is guarded. cc: Sajan Zuleta MD
[2019-09-02] MEDS: PULMICORT INH SCH ×2 (08:12→19:47)
[2019-09-02] MEDS: MUCOMYST 20% INH SCH ×2 (08:13→19:47)
[2019-09-02] MEDS: ATIVAN IV PRN ×2 (08:46→13:21)
[2019-09-02] MEDS: MORPHINE IV PRN ×3 (09:00→15:42)
[2019-09-02] MEDS: LIPOSYN 20% 250 ML IV SCH ×2 (09:27→13:25)
[2019-09-02 09:44] LABS: ALLEN TEST YES; BE 13.8 mmoll (-3.0-3.0); BLOOD TYPE ARTERIAL; HCO3-(ACT) 35.7 mmoll (20.0-26.0); METHB 1.1 % (0.0-1.5); O2(CT) 12.3 mL/dL (15.0-23.0); O2HB 95.3 % (95.0-99.0); PCO2(98.6) 48 mmHg (35-45); PO2(98.6) 116 mmHg (60-100); SAMPLE BLOOD; SAO2 98.7 % (95.0-100.0); pH(98.6) 7.51 (7.35-7.45)
[2019-09-02 09:45] LABS: MODALITY BI PAP
--- NOTE | 2019-09-02 11:04 | PROGRESS NOTE ---
DATE: 09/02/2019 SUBJECTIVE: The patient continues to be short of breath. He has been for the last 3 days. He is using a BiPAP mask right now but he looks basically the same like 3 days ago. OBJECTIVE: Vital Signs: Temperature 98.7 degrees, heart rate 100, respiratory rate 27, blood pressure 120/67, O2 saturation 100% on BiPAP. General Examination: This is a chronically ill- appearing, malnourished 64-year-old male, lying in bed, in mild respiratory distress using a BiPAP mask. Cardiovascular: S1, S2 heard. No murmurs, gallops, or rubs. Regular rate and rhythm. Respiratory: Decreased breath sounds globally with still wheezing and coarse breath sounds noted in both pulmonary bases. Patient is not using any accessory muscles or having work of breathing. Abdomen: Soft. Tender to palpation. Bowel sounds present. No organomegaly. Extremities: No clubbing, cyanosis, or edema. Peripheral pulses present in both legs. Neurological: Patient is alert and oriented x3. Moves 4 extremities. LABORATORY DATA: White cell count 9.72, hemoglobin 7.8, hematocrit 25.3, platelets 276,000. There is no ABG from today, and the BMP is grossly unremarkable with sodium 133, normal renal function and BUN 30. ASSESSMENT AND PLAN: 1. Recurrent pneumonia. The patient continues to be on vancomycin and cefepime. Patient unfortunately continues to be short of breath. X-ray from yesterday showed no change from prior. There is a stable right chest with stable dense bilateral interstitial infiltrates. At this point, we will continue with the same management. Pulmonary following this patient for recommendation. 2. Chronic obstructive pulmonary disease exacerbation. We will continue with DuoNeb every 4 hours plus Mucomyst. 3. Hypertension. Blood pressure is under control. We will continue with the same management. 4. Anxiety depressive disorder. We will continue with Xanax. 5. Chronic pain syndrome. Patient is on morphine IV. 6. Vocal cord paralysis secondary to lung cancer. This patient continues to be agitated and short of breath. There has been some conversation about code status but as of now, the patient is a full code. At this point, we will keep this patient here in the intensive care unit for better monitoring. cc: Marshal Bates MD
[2019-09-02 16:20] LABS: URINE SOURCE CATH
[2019-09-02 16:27] LABS: BILIRUBIN URINE NEGATIVE (NEGATIVE); BLOOD URINE NEGATIVE (NEGATIVE); COLOR YELLOW; GLUCOSE URINE NEGATIVE (NEGATIVE); KETONE URINE NEGATIVE (NEGATIVE); LEUKOCYTES URINE NEGATIVE (NEGATIVE); NITRITE URINE NEGATIVE (NEGATIVE); PH URINE 6.5; PROTEIN URINE TRACE mg/dL (NEGATIVE); SP GRAVITY URINE 1.023; TURBIDITY URINE CLEAR (CLEAR); UROBILINOGEN URINE 2 mg/dL (NORMAL)
[2019-09-02 16:28] LABS: UR EPITHELIAL CELLS <10 /HPF (<10); URINE BACTERIA NEGATIVE /HPF; URINE RBC <10 /HPF (<10); URINE WBC <10 /HPF (<10)
[2019-09-02] MEDS: DURAGESIC 25 MICROGM/HR PATCH TD SCH (20:24)
[2019-09-02] MEDS: LASIX IV SCH (20:24)
[2019-09-03] MEDS: VASOTEC IV SCH ×2 (01:53→13:24)
[2019-09-03] MEDS: MORPHINE IV PRN ×7 (02:13→23:23)
[2019-09-03] MEDS: DUONEB (A & A) INH SCH ×4 (03:20→16:07)
--- NOTE | 2019-09-03 04:19 | PULMONOLOGY PROGRESS NOTE ---
DATE: 09/02/2019 SUBJECTIVE: The patient is awake and alert. He is currently on high-flow oxygen. OBJECTIVE: Maximum temperature in the last 24 hours 100.5 degrees, blood pressure 110/63, heart rate 107, and oxygen saturation 93%. HEENT: Pupils are equal and reactive. Oropharynx appears clear. Neck: Supple. Lungs: Chest reveals crackles bilaterally with distant wheezing. Cardiac: Increased rate and regular rhythm. Abdomen: Soft with no bowel sounds. Extremities: Without edema. LABORATORIES: Arterial blood gas on BiPAP pH 7.51, pCO2 of 48, pO2 of 112. Sodium 133, potassium 3.7, chloride 87, bicarbonate 32, BUN 30, and creatinine 0.4. IMPRESSION: A 64-year-old with: 1. Stage IV lung cancer. 2. Aspiration pneumonia with acute respiratory distress syndrome. 3. Vocal cord paralysis. 4. Acute hypoxemic respiratory failure. 5. Chronic obstructive pulmonary disease. PLAN: 1. Continue Clinimix and lipids for nutrition. Consider swallowing study if he survives and clinically improves. 2. Continue NPO status. 3. Cycle BiPAP, high-flow oxygen, and non-rebreather as tolerated. 4. Continue broad-spectrum antibiotics. 5. Prognosis is guarded. End of life discussions have been held. If he dies during this hospitalization, he will be allowed to have a natural . cc: Sajan Zuleta MD
[2019-09-03] MEDS: VANCOMYCIN 1,200 MG in NS 250 ML IV SCH (05:02)
[2019-09-03] MEDS: CLINIMIX E 4.25%-5% SOLUTION 1,000 ML IV SCH (05:05)
[2019-09-03] MEDS: LASIX IV SCH (07:37)
[2019-09-03] MEDS: MAXIPIME 1 GM in NS 50 ML IV SCH (07:37)
[2019-09-03] MEDS: MUCOMYST 20% INH SCH (08:44)
[2019-09-03] MEDS: PULMICORT INH SCH (08:44)
[2019-09-03] MEDS: LIPOSYN 20% 250 ML IV SCH (09:22)
[2019-09-03 09:32] LABS: ESTIMATED GFR > 60
[2019-09-03 09:37] LABS: AGAP 15; BUN 32 mg/dL (8-22); CALCIUM 9.1 mg/dL (8.8-10.2); CHLORIDE 85 mmol/L (98-107); COSMO 276; CREATININE 0.5 mg/dL (0.7-1.2); GLUCOSE 120 mg/dL (70-104); POTASSIUM 3.6 mmol/L (3.5-5.1); SODIUM 134 mmol/L (136-145); TCO2 34 mmol/L (25-35)
[2019-09-03 09:52] LABS: BASO# 0.02 X1000 (0.0-0.2); BASO% 0.2 % (0.0-0.8); EOS# 0.11 X1000 (0.0-0.7); EOS% 1.2 % (0.0-10.0); HEMATOCRIT 26.2 % (42.0-52.0); HEMOGLOBIN 8.1 g/dL (14.0-18.0); IMM GRAN# 0.18 X1000 (0.0-0.04); IMM GRAN% 1.9 % (0.0-0.5); LYMPH# 0.28 X1000 (1.2-3.4); MCH 32.5 PG (27-31); MCHC 30.9 g/dL (33-37); MCV 105.2 FL (81-99); MONO# 0.32 X1000 (0.11-0.59); MONO% 3.5 % (1.7-9.3); MPV 9.7 FL (7.4-10.4); NEUT# 8.33 X1000 (1.4-6.5); NEUT% 90.2 % (42.2-75.2); PLT 318 X1000 (130-400); RBC 2.49 XMIL (4.7-6.1); RDW 18.1 % (11.5-14.5); WBC 9.24 X1000 (4.8-10.8)
[2019-09-03 10:26] LABS: BANDS 4 % (0-1); LYMPHS 4 % (21-51); MONO 8 % (1-9); SEGS 84 % (42-75)
[2019-09-03 10:27] LABS: ANISOCYTOSIS 1+; LARGE PLATELETS 1+
--- NOTE | 2019-09-03 11:54 | PROGRESS NOTE ---
DATE: 09/03/2019 SUBJECTIVE: The patient reports feeling less short of breath. According to nursing staff, he has been complaining of shortness of breath on and off. We tried Optiflow last afternoon at 6 L/minute. O2 saturation was mildly reaching the 90s. At this point, he is using a BiPAP mask. OBJECTIVE: Vital Signs: Temperature 99.5 degrees, heart rate 102, respiratory 24, blood pressure 120/66, and O2 saturation 95% on BiPAP machine. General: This is a chronically ill appearing, and malnourished 64-year-old male lying in bed in no acute distress. HEENT: Head is normocephalic, atraumatic. Mucous membranes dry. Neck: No JVD noted. No carotid bruits. No lymphadenopathy. No thyromegaly. Cardiovascular: S1 and S2 heard. No murmurs, gallops, or rubs. Regular rate and rhythm. Respiratory: Decreased breath sounds globally with coarse breath sounds and wheezing noted in both pulmonary bases. Patient not using any accessory muscles or having work of breathing. Abdomen: Soft, nontender to palpation. Bowel sounds present. No organomegaly. Extremities: No clubbing, cyanosis, or edema. Peripheral pulses present in both legs. Neurological: Patient is alert and oriented x3, and moving all four extremities. LABORATORY DATA: No labs at the time of my dictation. ASSESSMENT AND PLAN: 1. Healthcare associated pneumonia. 2. Chronic obstructive pulmonary disease exacerbation. 3. Stage IV lung cancer. 4. Hypertension. 5. Anxiety and depressive disorder. 6. Chronic pain syndrome. 7. Vocal cord paralysis secondary to lung cancer. PLAN: At this point, we had a long conversation with the family, brother and . Jessica from palliative care and also [facility] lead customer service representative has been in the conversation. They agreed to proceed with comfort care measures only once the rest of the members of the family can see this patient first. In that regard at this point, we will continue doing what we are doing. Once the family is ready, we will remove BiPAP and start comfort care measures only. The patient currently is DNR level 1. cc: Marshal Bates MD
[2019-09-03] MEDS: ATIVAN IV PRN ×3 (12:50→23:23)
[2019-09-04] MEDS: MORPHINE IV PRN ×4 (02:30→18:35)
[2019-09-04] MEDS: ATIVAN IV PRN ×4 (02:32→18:35)
--- NOTE | 2019-09-04 07:14 | Diag Imaging Result Doc PS360 ---
CHEST-PORTABLE - 09/04/2019 INDICATION: respiratory failure COMPARISON: 09/01/2019 FINDINGS: Stable right chest port. Stable large left upper lobe mass. Stable diffuse bilateral interstitial infiltrate. Stable left hemidiaphragm elevation. Heart size remains normal. IMPRESSION: No change from prior. Electronically signed by Walter Infante 09/04/2019 7:12 AM
[2019-09-04 08:21] LABS: BASO# 0.03 X1000 (0.0-0.2); BASO% 0.3 % (0.0-0.8); EOS# 0.07 X1000 (0.0-0.7); EOS% 0.8 % (0.0-10.0); HEMATOCRIT 27.9 % (42.0-52.0); HEMOGLOBIN 8.5 g/dL (14.0-18.0); IMM GRAN# 0.18 X1000 (0.0-0.04); LYMPH# 0.31 X1000 (1.2-3.4); LYMPH% 3.4 % (20.5-51.1); MCH 32.3 PG (27-31); MCHC 30.5 g/dL (33-37); MCV 106.1 FL (81-99); MONO# 0.48 X1000 (0.11-0.59); MONO% 5.3 % (1.7-9.3); NEUT# 8.04 X1000 (1.4-6.5); NEUT% 88.2 % (42.2-75.2); PLT 361 X1000 (130-400); RBC 2.63 XMIL (4.7-6.1); RDW 17.9 % (11.5-14.5); WBC 9.11 X1000 (4.8-10.8)
[2019-09-04 08:41] LABS: AGAP 11; BUN 37 mg/dL (8-22); CALCIUM 9.4 mg/dL (8.8-10.2); CHLORIDE 90 mmol/L (98-107); COSMO 280; CREATININE 0.5 mg/dL (0.7-1.2); ESTIMATED GFR > 60; GLUCOSE 95 mg/dL (70-104); POTASSIUM 3.8 mmol/L (3.5-5.1); SODIUM 136 mmol/L (136-145); TCO2 35 mmol/L (25-35)
[2019-09-04 09:08] LABS: ANISOCYTOSIS 1+; BASO 1 % (0-1); EOS 1 % (1-10); LYMPHS 4 % (21-51); MONO 5 % (1-9); NRBC 1 % (0-0); POLYCHROM 1+; SEGS 89 % (42-75)
[2019-09-04 09:09] LABS: LARGE PLATELETS OCCASIONAL
--- NOTE | 2019-09-04 09:27 | PROGRESS NOTE ---
DATE: 09/04/2019 SUBJECTIVE: He is a patient of Dr. Stanley Peña. He used to see Dr. Jeff Maldonado for his primary care. This is a 64-year-old with medical history of lung cancer, presented with shortness of breath. He had spread of surrounding lymph nodes 2 years ago and had been getting chemotherapy every other week per Dr. Peña. He has vocal cord paralysis secondary to cancer. He is here with worsening shortness of breath, subjective fever, productive cough, most recently admitted for postobstructive pneumonia, went home on Levaquin and steroids. The symptoms have worsened. PAST MEDICAL HISTORY: 1. Stage IV small cell lung cancer. 2. Lung cancer spread to lymph nodes which appear to have resolved. 3. COPD. 4. Anxiety and depression. 5. Chronic pain syndrome. 6. Hypertension. 7. 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 8. Paralyzed vocal cord secondary to lung cancer. He has a power port in place. 9. He has had some cervical lymph node biopsies and tonsillectomy. His states he is having some confusion. His O2 saturation is still tenuous. He is on rebreather and he is comfort measures. She would like us to increase and make his morphine a little more constant. He is asking for ice chips. He is having trouble swallowing. She wanted know if she could try a little water. OBJECTIVE: His T-max was a 100 degrees, pulse 100, respirations 22, blood pressure 125/69. Pupils are equal and round. Lungs are clear in all lung gomez. Cardiovascular: Regular rate without murmur or S3. Abdomen is soft. Skin is warm and dry. Urine output 2700 to 2800 mL. ASSESSMENT AND PLAN: 1. Bronchopneumonia. Continue vancomycin and cefepime. He has been having a lot of issues with respiratory failure. 2. Acute on chronic respiratory failure. It looks like a reticulonodular kind of pattern on x- ray, which could be pneumonia, could be carcinomatosis. He is struggling a lot to breathe, so continue his current oxygen supplementation. He appears comfortable this morning. 3. Acute respiratory failure. Again, he is on pressure ventilation and using supplemental O2. 4. Stage IV lung cancer. 5. He is just not able swallow very good, at risk for aspiration, so he is asking for ice chips and water. REVIEW OF HIS ORDERS: He is getting 4 to 10 mg IV q.hour as needed. I think his would like him on a more scheduled dose. He is getting fentanyl 25 mcg 1 patch q.3 days. cc: Kayden Torrez MD
[2019-09-04] MEDS: MORPHINE IV SCH ×4 (10:50→22:50)
[2019-09-04] MEDS: DUONEB (A & A) INH PRN (13:54)
[2019-09-05] MEDS: MORPHINE IV SCH ×6 (02:44→23:19)
[2019-09-05] MEDS: ATIVAN IV PRN ×5 (06:44→23:18)
--- NOTE | 2019-09-05 07:55 | PROGRESS NOTE ---
DATE: 09/05/2019 SUBJECTIVE: Mr. Nieves had a better night. I think his pain is better controlled. Still using his face mask oxygen, and he ate a little bit of a milkshake and some ice cream yesterday. I told him he can really eat whatever he wants to. I think his feels like he is more comfortable. OBJECTIVE: Vital Signs: Temperature is 98.1 degrees, pulse 96, respirations 20, blood pressure 127/68. HEENT: Pupils are equal and round. Lungs: Clear in all lung gomez. Cardiovascular: Regular rhythm and rate without murmur or S3. Urine output was 1200 mL. ASSESSMENT AND PLAN: 1. Bronchopneumonia, on vancomycin and cefepime. This appears to have improved. 2. Acute on chronic respiratory failure. It looks like a reticular nodular kind of pattern on x- ray, which could be pneumonia, and could also be carcinomatosis. He is planning to go home with hospice I think at some point. 3. Acute respiratory failure. His air and gas exchange has improved a little bit. 4. Stage IV lung cancer. 5. He has had trouble with swallowing and aspiration. His wanted to know if he could try some chicken noodle soup, and I think that would be fine. I do not see any change in his orders. cc: Kayden Torrez MD
[2019-09-05] MEDS: DUONEB (A & A) INH PRN ×2 (08:32→12:03)
[2019-09-05] MEDS: MORPHINE IV PRN ×4 (09:23→23:18)
[2019-09-05] MEDS: DURAGESIC 25 MICROGM/HR PATCH TD SCH (21:09)
[2019-09-06] MEDS: MORPHINE IV PRN ×6 (03:52→19:11)
[2019-09-06] MEDS: ATIVAN IV PRN ×6 (03:53→19:11)
[2019-09-06] MEDS: MORPHINE IV SCH ×5 (03:53→18:43)
--- NOTE | 2019-09-06 12:03 | PROGRESS NOTE ---
DATE: 09/06/2019 SUBJECTIVE: Mr. Nieves is comfortable. He had a pretty good night. He is not eating much except for milkshakes, about half a woo yesterday. His daughter, who is at the bedside, said he had a pretty good night. He has been comfortable. You can tell he gets a little agitated when he started to have pain in between his pain medications. OBJECTIVE: Temperature 98.8 degrees, pulse 106, respirations 18, blood pressure 121/71. Pupils are equal and round. Lungs are clear in all lung gomez. Cardiovascular Examination: Regular rhythm and rate without murmur or S3. Abdomen is soft. Skin is warm and dry. ASSESSMENT AND PLAN: 1. Bronchopneumonia, on vancomycin and cefepime. This is improved. 2. Acute on chronic respiratory failure. His x-ray looks like a reticular nodular pattern. This could be pneumonia versus carcinomatosis. 3. Acute respiratory failure. Requires quite a bit of supplementary oxygen. 4. Stage IV lung cancer. 5. Trouble swallowing and easy aspiration. Family is wanting to go home with hospice, so we will see if we will be able to give him the supplementary oxygen and see if we can get arrangements made. He appears comfortable. I do not see any change in his orders at this point. cc: Kayden Torrez MD
[2019-09-06 20:17] VITALS: BP 84/47
--- NOTE | 2019-09-07 07:02 | PULMONOLOGY PROGRESS NOTE ---
DATE: 09/06/2019 SUBJECTIVE: The patient is poorly responsive. He appears to have some intermittent apnea. OBJECTIVE: Vital Signs: Blood pressure 126/71, heart rate 115, respiratory rate 18, and oxygen saturation 96%. HEENT: Bitemporal wasting. Oropharynx appears clear. Neck: Supple. Lungs: Chest reveals coarse rhonchi bilaterally. Cardiac: S1, S2. Abdomen: Soft without bowel sounds. Extremities: Cool and mottled to the touch. IMPRESSION: A 64-year-old with: 1. Stage IV lung cancer. 2. Aspiration pneumonia with acute respiratory distress syndrome. 3. Acute hypoxemic respiratory failure. 4. Chronic obstructive pulmonary disease. DISCUSSION: A 64-year-old with problems outlined above. He continues to decline. He may be terminal at this juncture. RECOMMENDATIONS: 1. Continue comfort measures. 2. Continue current resuscitation status. This will allow him to have a natural if he dies. cc: Sajan Zuleta MD
--- NOTE | 2019-10-29 14:41 | DISCHARGE SUMMARY ---
ADMISSION DATE: 08/26/2019 DISCHARGE DATE: 09/06/2019 HISTORY: He is a patient of Dr. Natasha Peña. He used to be followed by Dr. Jeff Maldonado. Presented with shortness of breath. Mr. Edward Nieves is a 64-year-old male with past medical history of lung cancer spread to surrounding lymph nodes 2 years ago. Has been getting chemotherapy every other week per Dr. Peña. 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 Most recently admitted last month or the month before for postobstructive pneumonia where he went home on Levaquin and steroids. Symptoms worsened over the last 24 hours and so came on 08/26/2019. Woke up at about 630 that morning with shortness of breath, more fatigue, more weakness, more nausea. PAST MEDICAL HISTORY: 1. Stage IV small cell lung cancer. 2. Lung cancer spread to lymph nodes, which they have cleared. 3. COPD. 4. Anxiety and depression. 5. Chronic pain syndrome. 6. Hypertension. 7. 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 8. Paralyzed vocal cords secondary to lung cancer. SURGICAL HISTORY: 1. PowerPort placement. 2. Tonsillectomy. 3. Cervical lymph node biopsies. ADMISSION DIAGNOSIS: 1. Leukocytosis. 2. Continued bronchial pneumonia suspect post obstructive pneumonia. HOSPITAL COURSE: White count was up causing more shortness of breath. Started on IV steroids, nebulizers. Put on cefepime 1 g every 12 hours. He has underlying COPD and consider this is exacerbation of COPD. He is on home O2 at 2 L and has stage IV lung cancer, actively getting some chemotherapy. He has a history of anxiety and depression and history of hypertension. Vocal cord paralysis as mentioned. Chest x-ray on 08/27/2019, worsening pulmonary vascular congestion and pulmonary edema. Hematology/Oncology was following for stage IV non-small cell lung cancer, status post Gemzar and Navelbine cycle 3, day 15 on 08/18/2019. He was given Neulasta on 08/18/2019 and continued on antibiotics. His abdominal and pelvic CT was done on 08/27/2019. Infiltrates and fibrosis of developing lower lungs, cholelithiasis, prominent atherosclerosis. There was fatty infiltration of the liver and constipation. Pulmonary was consulted and they did initiate NPO status. Occasional ice chips for oral hygiene. Initiated Clinimix and lipids as a nutritional bridge and scheduled modified barium swallow. To check immunoglobulin levels. Chest x-ray significantly different than admission making this more likely infectious inflammatory process, less likely underlying cancer. He continued to decline and felt he was approaching terminal. He had some more aspiration and acute respiratory distress syndrome was developed. On 09/06/2019, he pronounced at 20:51. cc: Kayden Torrez MD
== END 2019-09-06 20:15 | disposition expired | DRG 193 ==
LOC: ED 10:31 → SUATTDRO 14:58 → EDIPHOLD 14:58 → 3N 17:30 → 2N 08-29 11:26 → ICU 08-30 12:43 → 3N 09-03 22:24
PROVIDERS: ATTEND Emergency Medicine